=== PATIENT | female | born 1985 | race Caucasian/White ===

== ENCOUNTER 2020-07-17 20:59 | Emergency (ER) | payer OTHER ==
--- OUTSIDE RECORDS SUMMARY | 2020-07-17 21:01 | XMS REPORT | Summary of Care ---
:1985 Author Organization [facility] - Health Address [address] [place] [address] Care Team Providers Name Role Phone Pcp, Does Not Have A Primary Care Provider Encounter Details Date Type Department Care Team Description 06/17/2020 Orders Only [facility] Doctor Unassigned, No 301 [facility] [place] [address] [address] [place] [address] Allergies No Known Allergiesdocumented as of this encounter (statuses as of 06/17/2020) Medications Medication Sig Dispensed Refills Start Date End Date Status ALPRAZolam (XANAX) 1 mg Take 1 mg by 0 Active tablet mouth 3 (three) times daily. norgestimate-ethinyl Take 1 tablet by 1 Package 11 10/26/2019 Active estradiol (ORTHO mouth daily. TRI-CYCLEN LO, 28,) 0.18/0.215/0.25 mg-25 mcg tabletIndications: Encounter for other general counseling or advice on contraception ALPRAZolam 2 mg tablet TAKE ONE (1) 0 11/22/2019 Active TABLET(S) BY MOUTH THREE TIMES A DAY. fluticasone propionate Use 1 [place] in 16 g 2 12/21/2019 Active 50 mcg/actuation nasal each nostril sprayIndications: daily. Allergic rhinitis, unspecified seasonality, unspecified trigger cetirizine (ZYRTEC) 10 Take 1 tablet by 30 tablet 1 12/21/2019 Active mg tabletIndications: mouth daily. Allergic rhinitis, unspecified seasonality, unspecified trigger documented as of this encounter (statuses as of 06/17/2020) Active Problems Problem Noted Date Well woman exam 01/07/2016 Screen for STD (sexually transmitted disease) 01/07/20 16 Contraceptive management 01/07/2016 Fatigue 01/07/2016 Generalized anxiety disorder 10/28/2012 documented as of this encounter (statuses as of 06/17/2020) Immunizations Name Administration Dates Next Due HPV 03/23/2011, 11/21/2010, 09/23/2010 TDAP 11/14/2013 Td 09/06/1998 documented as of this encounter Social History Tobacco Use Types Packs/Day Years Used Date Former Smoker Cigarettes Quit: 01/07/20 14 Smokeless Tobacco: Never Used Alcohol Use Drinks/Week oz/Week Comments No 0 Standard drinks or equivalent 0.0 Sex Assigned at Date Recorded Not on file documented as of this encounter Last Filed Vital Signs Not on filedocumented in this encounter Plan of Treatment Health Maintenance Due Date Last Done Comments INFLUENZA VACCINE (#1) 2020 PAP SMEAR 06/23/2020 06/23/2017, 11/14/2013, 06/07/2009 VARICELLA VACCINES (1 of 2 - 10/26/2020 Pos tponed from 1986 2-dose childhood series) (Insura nce / Financial) Depression Screening 12/20/2020 12/21/2019 DTaP,Tdap,and Td Vaccines (3 11/15/2023 11/14/2013, - Td) 09/06/1998 PNEUMOCOCCAL 0-64 YEARS Aged Out No longe r eligible based COMBINED SERIES on patient's age to complete this to pic documented as of this encounter Procedures Procedure Name Priority Date/Time Associated Diagnosis Comme nts EXTERNAL PROVIDER Routine 06/17/2020 12:01 AM CDT RECORDS documented in this encounter Results Not on filedocumented in this encounter Insurance Payer Benefit Plan / Subscriber ID Effective Phone Address T ype Group Dates [employer] [id number] 2019-Pres [address] Medic aid HEALTH CHOICE - HEALTH CHOICE ent [id number] 1 MANAGED MEDICAID [place], [place] [phone] documented as of this encounter Advance Directives Name Relationship Healthcare Agent Communication Relationship Agustin Child Health Care Agent
--- OUTSIDE RECORDS SUMMARY | 2020-07-17 21:01 | XMS REPORT | Summary of Care ---
:1985 Author Organization [address] [address] Care Team Providers Name Role Phone Pcp, Does Not Have A Primary Care Provider Encounter Details Date Type Department Care Team Description 06/19/2020 Letter (Out) [facility] Neurology Neurology-[address] [place] [address] Allergies No Known Allergiesdocumented as of this encounter (statuses as of 06/19/2020) Medications Medication Sig Dispensed Refills Start Date [...] TIMES A DAY. fluticasone propionate Use 1 [place] in 16 g 2 12/21/2019 Active 50 mcg/actuation nasal each nostril sprayIndications: daily. Allergic rhinitis, unspecified seasonality, unspecified trigger cetirizine (ZYRTEC) 10 Take 1 tablet by 30 tablet 1 12/21/2019 Active mg tabletIndications: mouth daily. Allergic rhinitis, unspecified seasonality, unspecified trigger documented as of this encounter (statuses as of 06/19/2020) Active Problems Problem Noted Date Well woman exam 01/07/2016 Screen for STD (sexually transmitted disease) 01/07/20 16 Contraceptive management 01/07/2016 Fatigue 01/07/2016 Generalized anxiety disorder 10/28/2012 documented as of this encounter (statuses as of 06/19/2020) Immunizations Name Administration Dates Next Due HPV [...] to pic documented as of this encounter Results Not on filedocumented in this encounter Insurance Payer Benefit Plan / Subscriber ID Effective Phone Address T e Group Dates [facility] [id number] 2019-Pres [address] Medic aid HEALTH CHOICE - HEALTH CHOICE ent [id number] 1 MANAGED MEDICAID [place] [phone] documented as of this encounter Advance Directives Name Relationship Healthcare Agent Communication Relationship Vamsi Child Health Care Agent
--- OUTSIDE RECORDS SUMMARY | 2020-07-17 21:01 | XMS REPORT | Summary of Care ---
:1985 Author Organization [facility] Address [address] [place] [address] Care Team Providers Name Role Phone Pcp, Does Not Have A Primary Care Provider Reason for Visit Reason Comments New Evaluation referred by [facility] for bro juanjo facial bones (Routine) Status Reason Specialty Diagnoses / Procedures Referred By C ontact Referred To Contact Closed Neurology Diagnoses Dysesthesia Right Cranial Nerve v2 Dysesthesia Luis Manuel Ramírez, Procedures CONSULT/REFERRAL NEUROLOGY DDS [address] [place], [place] [address] Phone: Encounter Details Date Type Department Care Team Description 06/28/2020 Office Visit [facility] Juancarlos Wakefield Trigeminal n euralgia (Primary Dx); Neurology-Rudy Mcmahan MD TMJ dysfunction [address] [place] [id number] Allergies No Known Allergiesdocumented as of this encounter (statuses as of 07/03/2020) Medications Medication Sig Dispensed Refills Start Date End Date Status ALPRAZolam (XANAX) Take 1 mg by 0 Active 1 mg tablet mouth 3 (three) times daily. norgestimate-ethin Take 1 1 Package 11 10/26/2019 Active yl estradiol tablet by (ORTHO TRI-CYCLEN mouth daily. LO, 28,) 0.18/0.215/0.25 mg-25 mcg tabletIndications: Encounter for other general counseling or advice on contraception ALPRAZolam 2 mg TAKE ONE (1) 0 11/22/2019 Active tablet TABLET(S) BY MOUTH THREE TIMES A DAY. fluticasone Use 1 [place] 16 g 2 12/21/2019 Activ e propionate 50 in each mcg/actuation nostril nasal daily. sprayIndications: Allergic rhinitis, unspecified seasonality, unspecified trigger cetirizine Take 1 30 tablet 1 12/21/2019 Active (ZYRTEC) 10 mg tablet by tabletIndications: mouth daily. Allergic rhinitis, unspecified seasonality, unspecified trigger pregabalin Take 1 90 capsule 1 06/28/2020 Active (LYRICA) 50 mg capsule by capsuleIndications mouth 3 : Trigeminal (three) neuralgia times daily. pregabalin 100 mg 0 06/06/2020 D iscontinued capsule 0 (Dose adju stment) documented as of this encounter (statuses as of 07/03/2020) Active Problems Problem Noted Date Well woman exam 01/07/2016 Screen for STD (sexually transmitted disease) 01/07/20 16 Contraceptive management 01/07/2016 Fatigue 01/07/2016 Generalized anxiety disorder 10/28/2012 documented as of this encounter (statuses as of 07/03/2020) Immunizations Name Administration Dates Next Due HPV 03/23/2011, 11/21/2010, 09/23/2010 TDAP 11/14/2013 Td 09/06/1998 documented as of this encounter Social History Tobacco Use Types Packs/Day Years Used Date Former Smoker Cigarettes Quit: 01/07/20 14 Smokeless Tobacco: Never Used Alcohol Use Drinks/Week oz/Week Comments No 0 Standard drinks or equivalent 0.0 Sex Assigned at Date Recorded Not on file COVID-19 Exposure Response Date Recorded In the last month, have you been in contact with No / Unsure 06/28/2020 8:40 AM CDT someone who was confirmed or suspected to have Coronavirus / COVID-19? documented as of this encounter Last Filed Vital Signs Vital Sign Reading Time Taken Comments Blood Pressure 95/66 06/28/2020 9:09 AM CDT Pulse 88 06/28/2020 9:09 AM CDT Temperature - - Respiratory Rate - - Oxygen Saturation 99% 06/28/2020 9:09 AM CDT Inhaled Oxygen Concentration - - Weight 52.2 kg (115 lb) 06/28/2020 9:09 AM CDT Height 167.6 cm (5' 6") 06/28/2020 9:09 AM CDT Body Mass Index 18.56 06/28/2020 9:09 AM CDT documented in this encounter Progress Notes Juancarlos Wakefield MD - 06/28/2020 8:40 AM CDT I have verified the medical student documentation and/or findings, including the history, physical exam, and medical decision making for the patient Faviola Agustin on 06/28/2020. Additionally,I have personally performed or re- performed the physical and neurological exam and medical decision making activities of this patient's evaluation and management service. Right now the main working diagnosis is a trigeminal neuralgia, trigeminal nerve dysfunction may also explain the corneal reflex abnormality. Juancarlos Wakefield MD Parts And Service Manager Neurology NEUROLOGY CLINIC NOTE DATE OF SERVICE: 06/28/2020 10:13 VISIT TYPE: new visit CHIEF COMPLAINTS: facial numbness/pain HISTORY OF PRESENT ILLNESS Faviola Agustin is a 35 year old female with a history of right-side facial reconstruction who presents for evaluation of facial pain and numbness. She had reconstructive surgery on the right side of her face in 2019 after a fishing weight flew onto her face while she was fishing. Since the surgery she has had constant numbness and pain which she rated a 5/10. She started taking Lyrica 100mg about a month ago and noticed some improvement, bringing the pain down to a baseline 2/10, however she is still bothered by the feeling of pressure, numbness, pain, and tingling. She is also worried about potential side effects of Lyrica which she has experienced, including feeling foggy, drowsiness, dizziness, and GI changes, although over the past 2-3 weeks she notes they have improved. She experiences occasional dry eye, imbalance, headaches and sees floaters. Patient mentioned having a seizure about 7yrs ago. Patient denies diplopia, tinnitus, hearing loss, or weakness. PAST MEDICAL HISTORY Past Medical History: Diagnosis Date Abnormal Pap smear 2009 colpo completed [address] Machuca in [place] Generalized anxiety disorder 10/28/2012 Screen for STD (sexually transmitted disease) 01/07/2016 Trauma 2019 fish weight broke right cheek bone PAST SURGICAL HISTORY Past Surgical History: Procedure Laterality Date COSMETIC SURGERY 2019 Facial reconstuctive surgery FAMILY HISTORY Family History Problem Relation Age of Onset Other - see comments Mother hypothyroidism, and MS, and fibromyalsia Arthritis NoFHx Asthma NoFHx defects NoFHx Breast Cancer NoFHx Colon Cancer NoFHx Ovarian Cancer NoFHx Uterine Cancer NoFHx Cancer NoFHx Depression NoFHx Diabetes NoFHx Genetic NoFHx Heart NoFHx High cholesterol NoFHx Hypertension NoFHx Mental retardation NoFHx Neurological NoFHx Osteoporosis NoFHx Psychiatry NoFHx SOCIAL HISTORY Social History Socioeconomic History Marital status: Spouse name: Not on file Number of children: 1 daughter Years of education: Not on file Highest education level: Not on file 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 Social Needs Financial resource strain: Not on file Food insecurity Worry: Not on file Inability: Not on file Transportation needs Medical: Not on file Non-medical: Not on file Tobacco Use Smoking status: Former Smoker Types: Cigarettes Quit date: 01/06/2014 Years since quittin.4 Smokeless tobacco: Never Used Substance and Sexual Activity Alcohol use: yes Alcohol/week: 5-6 standard drinks Drug use: Occasional THC Sexual activity: Yes Partners: Male control/protection: Pill Comment: last sexual intercourse 10/25/2019 Lifestyle Physical activity Days per week: Not on file Minutes per session: Not on file Stress: Not on file Relationships Social connections Talks on phone: Not on file Gets together: Not on file Attends jain service: Not on file Active member of club or organization: Not on file Attends meetings of clubs or organizations: Not on file Relationship status: Not on file Intimate partner violence Fear of current or ex partner: Not on file Emotionally abused: Not on file Physically abused: Not on file Forced sexual activity: Not on file Other Topics Concern Service Not Asked Blood Transfusions No Caffeine Concern Not Asked Occupational Exposure Not Asked Hobby Hazards Not Asked Sleep Concern Not Asked Stress Concern Not Asked Weight Concern Not Asked Special Diet Not Asked Back Care Not Asked Exercise Not Asked Bike Helmet Not Asked Seat Belt Not Asked Self-Exams Not Asked Social History Narrative Denies domestic violence or abuse. Reviewed patient's family, surgical and social hx. HOME MEDICATIONS Current Outpatient Medications Medication Sig Dispense Refill pregabalin 100 mg capsule ALPRAZolam 2 mg tablet TAKE ONE (1) TABLET(S) BY MOUTH THREE TIMES A DAY. cetirizine (ZYRTEC) 10 mg tablet Take 1 tablet by mouth daily. 30 tablet 1 fluticasone propionate 50 mcg/actuation nasal spray Use 1 [place] in each nostril daily. 16 g 2 norgestimate-ethinyl estradiol (ORTHO TRI-CYCLEN LO, 28,) 0.18/0.215/0.25 mg-25 mcg tablet Take 1 tablet by mouth daily. 1 Package 11 ALPRAZolam (XANAX) 1 mg tablet Take 1 mg by mouth 3 (three) times daily. No current facility-administered medications for this visit. ALLERGY No Known Allergies REVIEW OF SYSTEMS General: (-) fever, (-) chills, (-) weight change, (+) fatigue, (-) change in appetite Skin: (-) lesion HEENT: see HPI Neck: (-) pain Heme: did not ask Resp: (-) cough, (-) shortness of breath, (-) dyspnea on exertion Cardio: (-) chest pain, (+) palpitations, (-) syncope GI: (+) nausea, (+) vomiting, (-) diarrhea, (-) constipation : did not ask Endo: (-) thyroid disease Neuro: See HPI Back: (-) pain MICHAEL: (-) muscle pain, (-) joint pain Psych: (+) anxiety, (+) panic attack PHYSICAL EXAM Vitals: 06/28/20 0909 BP: 95/66 BP Location: Left arm Patient Position: Sitting BP CUFF SIZE: Adult Medium Pulse: 88 SpO2: 99% Weight: 115 lb (52.2 kg) Height: 5' 6" (1.676 m) General: Alert and oriented x 4 (time, person, place and situation); no apparent distress. Mental Status: Consciousness, attention, concentration: normal, Stays focused and on task while being questioned. Speech/ Language: intact to comprehension, fluency, repetition and naming. Fund of knowledge: is congruent with level of education. Remote and recent memory: normal, can recall recent and distant memories Cranial Nerves: I. Not tested. II. PERRL. FOV full to confrontation. III. IV., . Extraocular movements intact without nystagmus. V. Normal sensation in V1 distributions. Numbness and sensitivity in right V2-V3 distribution; normal in left V2-V3. Decreased corneal reflex sensation in R eye afferent branch. VII. No facial droop noted. VIII. Hearing intact. IX., X. Palatal elevation and gag response present symmetrically. XI. Normal strength of sternocleidomastoid and trapezius muscles bilaterally. XII. Tongue in midline. Motor: Tone: normal Bulk: normal STRENGTH Right Left Deltoid 5 5 Biceps 5 5 Triceps 5 5 Wrist extensors 5 5 Interossei 5 5 Hip flexors 5 5 Knee flexors (hamstring) 5 5 Knee extensors (quadriceps) 5 5 Ankle dorsiflexors 5 5 Ankle plantar flexors 5 5 DTR's: Right Left Biceps 2+ 2+ Triceps 2+ 2+ Brachioradialis 2+ 2+ Patella 2+ 2+ Achilles 2+ 2+ Pathologic reflexes and signs: Babinski: absent Cerebellar: Nystagmus: neg, FTN: nl, HTS:nl, Tremors: neg, Dysdiadochokinesia: neg Sensory: LT: intact, mild disturbance in left arm and hand; temperature: intact, PP: intact, proprioception: intact, Vibration: intact Gait: normal HEENT: oropharynx clear; moist mucous membranes Lungs: clear to auscultation bilaterally Cardio: S1, S2 normal Extremities: no cyanosis, clubbing or edema Neck: supple, no carotid bruit, no JVD Abdomen: soft; non-tender; non-distended; normoactive bowel sounds heard ASSESSMENT AND PLAN Faviola Agustin is a 35 year old female with a history of right-side facial reconstruction who presents for evaluation of facial pain and numbness. Since her surgeries she has been experiencingconstant pain and numbness along the right side of her face which has improved a little with Lyrica.Physical exam was notable for decreased corneal reflex on the right, sensitivity to touch and pressure particularly in the V2 distribution and along the jawline, possibly involving the V3 distribution as well, and TMJ sensitivity. The abnormal sensation continues to bother her and she is open to increasing medication. Differential/Diagnosis Trigeminal Neuropathy She continues to experiences numbness and pain in the V2 and possibly V3 distribution. This is consistent with the area of surgical repair from her previous incident. She may benefit from an increased dose of Lyrica to 50mg TID to help with the neuropathy. Discussed the option of imaging and gamma knife therapy should Lyrica fail to provide therapeutic relief. TMJ dysfunction Her exam was notable for TMJ sensitivity and pain when pressure was applied along the jawline and near the joint. She could have had some damage in that area from the trauma or reconstructive surgery. She does not present with clicking which may rule out TMJ disorder, however other symptoms are present. Should her pain continue, imaging may be requested to investigate possible bone abnormalities. Plan -Change Lyrica dose to 50mg TID -follow-up PRN RTC PRN Sully Salomon MS3 Case was discussed and seen with Dr. Wakefield, Neurology Faculty. Eliceo Jacobo LVN - 06/28/2020 8:40 AM Jaret Margot Agustin is a 35 year old female comes to clinic independent in ambulation for followup from hospital stay due to facial fracture, pain in orbital area and discuss medication that hospit al prescribed. Pt comes alone . Pt in NAD w/ pain reported . Pt preferred language is Singaporean. Pt. denies fall in last 12 months. Allergies and medications reviewed and updated. ELICEO NEWMAN LVN 06/28/2020 9:26 AM documented in this encounter Plan of Treatment Health [...] Results Not on filedocumented in this encounter Visit Diagnoses Diagnosis Trigeminal neuralgia - Primary TMJ dysfunction Temporomandibular joint disorders, unspe cified documented in this encounter Insurance Payer Benefit Plan / Subscriber ID Effective Phone Address T ype Group Dates [employer] [id number] 2019- [address] Medic aid HEALTH CHOICE - HEALTH CHOICE ent [id number] 1 MANAGED MEDICAID [place]ICAID [phone] documented as of this encounter Advance Directives Name Relationship Healthcare Agent Communication Relationship Vamsi Child Health Care Agent
--- OUTSIDE RECORDS SUMMARY | 2020-07-17 21:01 | XMS REPORT | Continuity of Care Document ---
:1985 Author Organization [facility] t Address [address] [place] [address] Care Team Providers Name Role Phone Yovana Cadet Attending Clinician Doctor Unassigned, Name Attending Clinician Unavailable Twyla MORRIS, Gene Attending Clinician Problems This patient has no known problems. Allergies, Adverse Reactions, Alerts This patient has no known allergies or adverse reactions. Medications This patient has no known medications. Procedures This patient has no known procedures. Encounters Start End Encounter Admission Attending Care Care Encounter Source Date/Time Date/Time Type Type Clinicians Facility Department ID 2020-05-21 Outpatient [id number] 11:27:39 2019-11-10 Outpatient [facility] [facility] 14:36:23 2019-05-20 Inpatient E [facility] 08:17:00 2020-07-15 2020-07-15 Telephone GEORGINA [place] [id number] 00:00:00 00:00:00 Marie Yen QUALITY ASSURANCE NURSE [id number] [facility] [id number] MATERNAL [id number] & CHILD 107 [facility] 2020-07-05 2020-07-05 Orders Doctor BAUER [id number] 00:00:00 00:00:00 Only Unassigned, PATRICIA [id number] [place] [facility] [id number] 2020-07-02 2020-07-02 Telephone CHERELLE WakefieldMB [id number] 00:00:00 00:00:00 Juancarlos Grant [id number] [place] [id number] [facility] [id number] [address] 2020-06-28 2020-06-28 Office Twyla [facility] [id number] 08:40:57 10:43:57 Visit Juancarlos Grant [id number] [place] [id number] [facility] [id number] [address] 2020-04-23 2020-04-23 [facility]patient [id number] 09:14:00 09:14:00 2019-06-08 2019-06-08 Outpatient [id number] 08:53:00 08:53:00 2019-05-29 2019-05-29 Inpatient U [id number] 05:35:00 05:35:00 Results This patient has no known results.
--- OUTSIDE RECORDS SUMMARY | 2020-07-17 21:02 | XMS REPORT | Summary of Care ---
:1985 Author Organization [facility] - Health Address [address] [place] [address] Care Team Providers Name Role Phone Pcp, Does Not Have A Primary Care Provider Encounter Details Date Type Department Care Team Description 07/05/2020 Orders Only [facility] Doctor Unassigned, No 301 [facility] Name [place] [id number] [address] [place] [id number] Allergies No Known Allergiesdocumented as of this encounter (statuses as of 07/09/2020) Medications Medication Sig Dispensed Refills Start Date [...] TIMES A DAY. fluticasone propionate Use 1 [place] in 16 g 2 12/21/2019 Active 50 mcg/actuation nasal each nostril sprayIndications: daily. Allergic rhinitis, unspecified seasonality, unspecified trigger cetirizine (ZYRTEC) 10 Take 1 tablet by 30 tablet 1 12/21/2019 Active mg tabletIndications: mouth daily. Allergic rhinitis, unspecified seasonality, unspecified trigger pregabalin (LYRICA) 50 Take 1 capsule 90 capsule 1 07/05/2020 Active mg capsuleIndications: by mouth 3 Trigeminal neuralgia (three) times daily. documented as of this encounter (statuses as of 07/09/2020) Active Problems Problem Noted Date Well woman exam 01/07/2016 Screen for STD (sexually transmitted disease) 01/07/20 16 Contraceptive management 01/07/2016 Fatigue 01/07/2016 Generalized anxiety disorder 10/28/2012 documented as of this encounter (statuses as of 07/09/2020) Immunizations Name Administration Dates Next Due HPV [...] on patient's age to complete this to [facility] documented as of this encounter Procedures Procedure Name Priority Date/Time Associated Diagnosis Comme nts CONTROLLED SUBSTANCE Routine 07/05/2020 12:01 AM PRESCRIPTION CDT documented in this encounter Results Not on filedocumented in this encounter Insurance Payer Benefit Plan / Subscriber ID Effective Phone Address T e Group [facility] [id number] 2019-Pres [address] Medic aid HEALTH CHOICE - HEALTH CHOICE ent [id number] 1 MANAGED MEDICAID [place], [place]ID [phone] documented as of this encounter Advance Directives Name Relationship Healthcare Agent Communication Relationship Vamsi Child Health Care Agent
--- OUTSIDE RECORDS SUMMARY | 2020-07-17 21:02 | XMS REPORT | Summary of Care ---
:1985 Author Organization [facility] Address [address] [place] [address] Care Team Providers Name Role Phone Pcp, Does Not Have A Primary Care Provider Reason for Visit Reason Comments Assessment stomach pains Encounter Details Date Type Department Care Team Description 07/15/2020 Telephone [facility]- Marie Toledo Ass essment (stomach [place] C, WHCNP pains ) [address] [facility] [address] [place], [place] [phone] Allergies No Known Allergiesdocumented as of this encounter (statuses as of 07/17/2020) Medications Medication Sig Dispensed Refills Start Date [...] TIMES A DAY. fluticasone propionate Use 1 Coolin in 16 g 2 12/21/2019 Active 50 [...] as of this encounter (statuses as of 07/17/2020) Active Problems Problem Noted Date Well woman exam 01/07/2016 Screen for STD (sexually transmitted disease) 01/07/20 16 Contraceptive management 01/07/2016 Fatigue 01/07/2016 Generalized anxiety disorder 10/28/2012 documented as of this encounter (statuses as of 07/17/2020) Immunizations Name Administration Dates Next Due HPV [...] Signs Not on filedocumented in this encounter Miscellaneous Notes Telephone Encounter - Farhat Thornton RN - 07/17/2020 9:04 AM CSTCalled patient, no answer. 3rd attempt. Left vm. FARHAT THORNTON RN 07/17/2020 9:04 AM MONITOR Telephone Encounter - Liliane Wyatt LVN - 07/15/2020 4:52 PM Sivakumar Margot Agustin is a 35 year old female Attempted to call patient, no answer, left vm. elephone Encounter - Jayda Nielsen - 07/15/2020 1:44 PM Sivakumar Margot Agustin is a 35 year old female is calling to see if she can be seen in the clinic. Patient says that she has been having stomach pains with burning sensation. Please return call. Fernanda. documented in this encounter Plan of Treatment [...] on patient's age to complete this to [facility] documented as of this encounter Results Not on filedocumented in this encounter Insurance Payer Benefit Plan / Subscriber ID Effective Phone Address T e Group [facility] COMMUNITY [id number] 2019-Pres [address] Medic aid HEALTH CHOICE - HEALTH CHOICE ent [id number] 1 MANAGED MEDICAID [place], [place]ID [id number] documented as of this encounter Advance Directives Name Relationship Healthcare Agent Communication Relationship Vamsi Child Health Care Agent
--- OUTSIDE RECORDS SUMMARY | 2020-07-17 21:02 | XMS REPORT | Summary of Care ---
:1985 Author Organization [facility] Address [address] [place] [address] Care Team Providers Name Role Phone Pcp, Does Not Have A Primary Care Provider Reason for Visit Reason Comments New Evaluation referred by [facility] for bro juanjo facial bones (Routine) Status Reason Specialty Diagnoses / Procedures Referred By C ontact Referred To Contact Closed Neurology Diagnoses Dysesthesia Right Cranial Nerve v2 Dysesthesia Luis Manuel Ramírez, Procedures CONSULT/REFERRAL NEUROLOGY DDS [address] [place], [place] [address] Phone: Encounter Details Date Type Department Care Team Description 06/28/2020 Office Visit [facility] Juancarlos Wakefield Trigeminal n euralgia (Primary Dx); Neurology-Rudy Mcmahan MD TMJ dysfunction [address] [place] [phone] Allergies No Known Allergiesdocumented as of [...] THREE TIMES A DAY. fluticasone Use 1 [place] 16 g 2 12/21/2019 Activ e propionate [...] the corneal reflex abnormality. Juancarlos Wakefield MD [employer] Manager Neurology NEUROLOGY CLINIC NOTE DATE OF [...] completed [address] 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 16 g 2 [...] pain reported . Pt preferred language is Slovenian. Pt. denies fall in last 12 months. [...] Address T ype Group Dates COMMUNITY COMMUNITY [id number] 2019- [address] Medic aid HEALTH CHOICE - HEALTH CHOICE ent [id number] 1 MANAGED MEDICAID [place], [place]ID [phone] documented as of this encounter Advance Directives Name Relationship Healthcare Agent Communication Relationship Vamsi Child Health Care Agent
--- OUTSIDE RECORDS SUMMARY | 2020-07-17 21:02 | XMS REPORT | Summary of Care ---
:1985 Author Organization [facility] Address [address] [place] [address] Care Team Providers Name Role Phone Pcp, Does Not Have A Primary Care Provider Reason for Visit Reason Comments Rx Concern/Question needing Rx resent/pregabalin (LYRICA) 50 mg capsule Encounter Details Date Type Department Care Team Description 07/02/2020 Telephone [facility] Juancarlos Wakefield, Rx Con cern/Question Neurology-Rudy MORRIS (needing Rx [address] resent/p[address], [address] [place], [place] (LYRICA) 50 [place] [phone] capsule) [phone] Allergies No Known Allergiesdocumented as of this encounter (statuses as of 07/05/2020) Medications Medication Sig Dispensed Refills Start Date [...] THREE TIMES A DAY. fluticasone Use 1 [place] 16 g 2 12/21/2019 Activ e propionate 50 in each mcg/actuation nostril nasal daily. sprayIndications: Allergic rhinitis, unspecified seasonality, unspecified trigger cetirizine Take 1 30 tablet 1 12/21/2019 Active (ZYRTEC) 10 mg tablet by tabletIndications: mouth daily. Allergic rhinitis, unspecified seasonality, unspecified trigger pregabalin Take 1 90 capsule 1 07/05/2020 Active (LYRICA) 50 mg capsule by capsuleIndications mouth 3 : Trigeminal (three) neuralgia times daily. pregabalin Take 1 90 capsule 1 06/28/2020 Discont inued (LYRICA) 50 mg capsule by 0 (Reo rder) capsuleIndications mouth 3 : Trigeminal (three) neuralgia times daily. pregabalin Take 1 90 capsule 1 07/05/2020 Discont inued (LYRICA) 50 mg capsule by 0 capsuleIndications mouth 3 : Trigeminal (three) neuralgia times daily. documented as of this encounter (statuses as of 07/05/2020) Active Problems Problem Noted Date Well woman exam 01/07/2016 Screen for STD (sexually transmitted disease) 01/07/20 16 Contraceptive management 01/07/2016 Fatigue 01/07/2016 Generalized anxiety disorder 10/28/2012 documented as of this encounter (statuses as of 07/05/2020) Immunizations Name Administration Dates Next Due HPV [...] this encounter Miscellaneous Notes Telephone Encounter - Newman, Eliceo GrubbsJASKARAN - 07/05/2020 8:39 AM CDT Requested Prescriptions Signed Prescriptions Disp Refills pregabalin (LYRICA) 50 mg capsule 90 capsule 1 Sig: Take 1 capsule by mouth 3 (three) times daily. Authorizing Provider: JULIA KAPADIA Ordering User: ELICEO NEWMAN. RX was printed and faxed to pharmacy for refill and faxed to pharmacy. ELICEO NEWMAN LVN 07/05/2020 8:46 AM elephone Encounter - Eliceo Newman LVN - 07/04/2020 11:30 AM CDTCalled patient and informed patient that RX needs to be signed and that MD will be in office in AM to print and sign. Patient is ok with this and verbalized understanding. ELICEO NEWMAN LVN 07/04/2020 11:31 AM elephone Encounter - Julieta Babin - 07/04/2020 10:40 AM CDT Faviola Agustin is a 35 year old female calling because pharmacy never received a prescription for the following medication: Patient has one capsule left. Please advise. Thank you! Disp Refills Start End AVIVA pregabalin (LYRICA) 50 mg capsule 90 capsule 1 06/28/2020 -- Sig: Take 1 capsule by mouth 3 (three) times daily. Class: Normal Route: Oral Order: [id number] Date/Time Signed: 06/28/2020 13:42 Renewals Renewal requests to authorizing provider (Juancarlos Wakefield MD) prohibited Associated Diagnoses Trigeminal neuralgia - Primary Pharmacy [facility] [place], [place] - [address] [facility] & [address] elephone Encounter - Stephen Crockett - 07/03/2020 3:05 PM CDJayshree Margot Agustin is a 35 year old female Patient is needing pregabalin (LYRICA) 50 mg capsule resent to pharmacy. Pharmacy states that prescription was never received. Please contact patient at [phone] (home) [facility] [place], [place] - [address] [place], [place] [address] [place] [address] [place] [id number] Qiynbqnvchgeuo signed by Stephen Crockett at 07/03/2020 3:06 PM CDTTelephone Encounter - Minna Sung - 07/02/2020 4:03 PM Jaret Margot Agustin is a 35 year old female Patient is needing pregabalin (LYRICA) 50 mg capsule resent to pharmacy. Pharmacy states that prescription was never received. Please contact patient at [phone] (home) [facility] [place], [place] - [address] [place], [place] [address] [facility] [place] [address] [place] [id number] documented in this encounter Plan of Treatment [...] on patient's age to complete this to [facility] documented as of this encounter Results Not on filedocumented in this encounter Visit Diagnoses Diagnosis Trigeminal neuralgia documented in this encounter Insurance Payer Benefit Plan / Subscriber ID Effective Phone Address T [facility] [id number] 2019-Pres [address] Medic aid HEALTH CHOICE - HEALTH CHOICE ent [id number] 1 MANAGED MEDICAID [place], [place] [id number] documented as of this encounter Advance Directives Name Relationship Healthcare Agent Communication Relationship Vamsi Child Health Care Agent
--- NOTE | 2020-07-17 22:00 | ER ---
Nurse's Notes [facility] Name: Faviola Agustin Age: 35 yrs Sex: Female : 1985 Arrival Date: 07/17/2020 Time: 21:02 Bed 30 Private MD: Diagnosis: Struck by other nonvenomous marine animals-jellyfish Presentation: 07/17 21:14 Chief complaint: Patient states: stung by box jelly fish approximately 2 hours ago on dm5 left wrist. Pain to left wrist, some swelling and redness noted. Pt states that pain is radiating to elbow at this time. Pain rated at 8/10 at this time. Pt states that they took Benadryl cream and 1 zyrtec 2 hours ago. Coronavirus screen: Client denies travel out of the [place] in the last 14 days. At this time, the client does not indicate any symptoms associated with coronavirus-19. Ebola Screen: Patient negative for fever greater than or equal to 101.5 degrees Fahrenheit, and additional compatible Ebola Virus Disease symptoms Patient denies exposure to infectious person. Patient denies travel to an Ebola-affected area in the 21 days before illness onset. No symptoms or risks identified at this time. Initial Sepsis Screen: Does the patient meet any 2 criteria? No. Patient's initial sepsis screen is negative. Does the patient have a suspected source of infection? No. Patient's initial sepsis screen is negative. Risk Assessment: Do you want to hurt yourself or someone else? Patient reports no desire to harm self or others. Onset of symptoms was July 17, 2020. 21:14 Method Of Arrival: Ambulatory dm5 21:14 Acuity: YOBANI 4 dm5 Historical: - Allergies: 22:13 No Known Allergies; rv - Home Meds: 22:13 None [Active]; rv - PMHx: 22:13 None; rv - PSHx: 22:13 Unable to obtain; rv - Immunization history:: Adult Immunizations up to date. - Social history:: Smoking status: unknown. Screenin:12 Abuse screen: Denies threats or abuse. Denies injuries from another. Nutritional rv screening: No deficits noted. Tuberculosis screening: No symptoms or risk factors identified. Fall Risk None identified. Assessment: 22:12 General: Appears uncomfortable, Behavior is calm, cooperative. Pain: Complains of pain rv in left forearm. Neuro: Level of Consciousness is awake, alert, obeys commands, Oriented to person, place, time, situation. Cardiovascular: Patient's skin is warm and dry. Respiratory: Airway is patent Breath sounds are clear bilaterally. Derm: Rash noted that is red, on left forearm. Vital Signs: 21:14 BP 120 / 81; Pulse 79; Resp 18; Temp 97.9; Pulse Ox 100% on R/A; Weight 47.63 kg; dm5 Height 5 ft. 7 in. (170.18 cm); Pain 8/10; 21:14 Body Mass Index 16.45 (47.63 kg, 170.18 cm) 5 ED Course: 21:02 Patient arrived in ED. cf2 21:17 Triage completed. 5 21:21 Barbara Granados [facility]NP-C [facility]. kb 21:21 Rohit Aguila MD is Attending Physician. kb 22:00 Kit Salgado, ADRIEN is Primary Nurse. rv 22:13 Patient has correct armband on for positive identification. Pulse ox on. NIBP on. rv 22:13 Arm band placed on right wrist. rv 22:13 No provider procedures requiring assistance completed. Patient did not have IV access rv during this emergency room visit. Administered Medications: 22:11 Drug: Merrill (7.5 mg-325 mg) 1 tabs {Note: RASS 0.} Route: PO; rv 22:12 Follow up: Response: Medication administered at discharge. rv 22:11 Drug: Zofran (Ondansetron) 4 mg Route: PO; rv 22:12 Follow up: Response: Medication administered at discharge. rv 22:11 Drug: Doxycycline 100 mg Route: PO; rv 22:11 Follow up: Response: Medication administered at discharge. rv Outcome: 21:59 Discharge ordered by MD. kb 22:13 Discharged to home ambulatory, with family. rv 22:13 Condition: good 22:13 Discharge instructions given to patient, Instructed on discharge instructions, follow up and referral plans. medication usage, Demonstrated understanding of instructions, follow-up care, medications, Prescriptions given X 3. 22:13 Patient left the ED. rv Signatures: Barbara Granados FNP-C FNP-Ckb Markwardt, Deana, RN RN dm5 Kit Salgado RN RN rv Suhail, Martínez cf2
--- NOTE | 2020-07-17 22:00 | EDPHYS ---
Physician Documentation [facility] Name: Faviola Agustin Age: 35 yrs Sex: Female : 1985 Arrival Date: 07/17/2020 Time: 21:02 Bed 30 Private MD: ED Physician Rohit Aguila HPI: 07/17 22:09 This 35 yrs old Female presents to ER via Ambulatory with complaints of sTUNG kb BY A BOX JELLYFISH. 22:09 The patient was bitten on the left forearm, stung by jellyfish while diving 50 miles kb [place]. Onset: The symptoms/episode began/occurred today. Animal information: jellyfish. Secondary to the bite the patient reports erythema, pain, swelling. Associated signs and symptoms: Pertinent positives: erythema at site, pain at site, swelling at site. Severity of symptoms: At their worst the symptoms were moderate, in the emergency department the symptoms are unchanged. The patient has not experienced similar symptoms in the past. The patient has not recently seen a physician. Historical: - Allergies: 22:13 No Known Allergies; rv - Home Meds: 22:13 None [Active]; rv - PMHx: 22:13 None; rv - PSHx: 22:13 Unable to obtain; rv - Immunization history:: Adult Immunizations up to date. - Social history:: Smoking status: unknown. ROS: 22:07 Constitutional: Negative for fever, chills, and weight loss, Cardiovascular: Negative kb for chest pain, palpitations, and edema, Respiratory: Negative for shortness of breath, cough, wheezing, and pleuritic chest pain, Abdomen/GI: Negative for abdominal pain, nausea, vomiting, diarrhea, and constipation, Back: Negative for injury and pain, MS/Extremity: Negative for injury and deformity, Neuro: Negative for headache, weakness, numbness, tingling, and seizure. 22:07 Skin: Positive for erythema, of the left forearm. Exam: 22:07 Constitutional: This is a well developed, well nourished patient who is awake, alert, kb and in no acute distress. Head/Face: Normocephalic, atraumatic. Chest/axilla: Normal chest wall appearance and motion. Nontender with no deformity. No lesions are appreciated. Cardiovascular: Regular rate and rhythm with a normal S1 and S2. No gallops, murmurs, or rubs. Normal PMI, no JVD. No pulse deficits. Respiratory: Lungs have equal breath sounds bilaterally, clear to auscultation and percussion. No rales, rhonchi or wheezes noted. No increased work of breathing, no retractions or nasal flaring. Abdomen/GI: Soft, non-tender, with normal bowel sounds. No distension or tympany. No guarding or rebound. No evidence of tenderness throughout. MS/ Extremity: Pulses equal, no cyanosis. Neurovascular intact. Full, normal range of motion. Neuro: Awake and alert, GCS 15, oriented to person, place, time, and situation. Cranial nerves II-XII grossly intact. Motor strength 5/5 in all extremities. Sensory grossly intact. Cerebellar exam normal. Normal gait. 22:07 Skin: injury, jellyfish sting. Vital Signs: 21:14 BP 120 / 81; Pulse 79; Resp 18; Temp 97.9; Pulse Ox 100% on R/A; Weight 47.63 kg; dm5 Height 5 ft. 7 in. (170.18 cm); Pain 8/10; 21:14 Body Mass Index 16.45 (47.63 kg, 170.18 cm) dm5 MDM: 21:42 Patient medically screened. kb 22:06 Data reviewed: vital signs, nurses notes. Data interpreted: Pulse oximetry: on room air kb is 100 %. Interpretation: normal. Counseling: I had a detailed discussion with the patient and/or guardian regarding: the historical points, exam findings, and any diagnostic results supporting the discharge/admit diagnosis, the need for outpatient follow up, a family practitioner, to return to the emergency department if symptoms worsen or persist or if there are any questions or concerns that arise at home. Administered Medications: 22:11 Drug: Jackson (7.5 mg-325 mg) 1 tabs {Note: RASS 0.} Route: PO; rv 22:12 Follow up: Response: Medication administered at discharge. rv 22:11 Drug: Zofran (Ondansetron) 4 mg Route: PO; rv 22:12 Follow up: Response: Medication administered at discharge. rv 22:11 Drug: Doxycycline 100 mg Route: PO; rv 22:11 Follow up: Response: Medication administered at discharge. rv Disposition: 22:28 Co-signature as Attending Physician, Rohit Aguila MD. rn Disposition: 07/17/20 21:59 Discharged to Home. Impression: Struck by other nonvenomous marine animals - jellyfish. - Condition is Stable. - Discharge Instructions: Marine Life Injury, Vvhi-[id number]-Qjaz. - Prescriptions for Tylenol- Codeine #3 300-30 mg Oral Tablet - take 2 tablets by ORAL route every 6 hours As needed; 16 tablet. Zofran 4 mg Oral Tablet - take 1 tablet by ORAL route every 6 hours As needed; 20 tablet. Doxycycline Hyclate 100 mg Oral Tablet - take 1 tablet by ORAL route every 12 hours; 20 tablet. - Medication Reconciliation Form, Thank You Letter, Antibiotic Education, Prescription Opioid Use form. - Follow up: Emergency Department; When: As needed; Reason: Worsening of condition. Follow up: Private Physician; When: 2 - 3 days; Reason: Recheck today's complaints, Continuance of care, Re-evaluation by your physician. Signatures: Barbara Granados, AUTOMOTIVE PRODUCTION WORKER-C AUTOMOTIVE PRODUCTION WORKER-Ckb Rohit Aguila MD MD rn Kit Salgado RN RN rv Corrections: (The following items were deleted from the chart) 22:00 21:59 07/17/2020 21:59 Discharged to Home. Impression: Struck by other nonvenomous marine animals. Condition is Stable. Forms are Medication Reconciliation Form, Thank You Letter, Antibiotic Education, Prescription Opioid Use. Follow up: Emergency Department; When: As needed; Reason: Worsening of condition. Follow up: Private Physician; When: 2 - 3 days; Reason: Recheck today's complaints, Continuance of care, Re-evaluation by your physician. kb 22:13 22:00 07/17/2020 21:59 Discharged to Home. Impression: Struck by other nonvenomous marine animals - jellyfish. Condition is Stable. Forms are Medication Reconciliation Form, Thank You Letter, Antibiotic Education, Prescription Opioid Use. Follow up: Emergency Department; When: As needed; Reason: Worsening of condition. Follow up: Private Physician; When: 2 - 3 days; Reason: Recheck today's complaints, Continuance of care, Re-evaluation by your physician. kb
[2020-07-17] MEDS ORDERED: DOXYCYCLINE 100 MG CAP PO ONE (22:17)
[2020-07-17] MEDS ORDERED: ONDANSETRON 4 MG (ODT) TAB ONE (22:17)
[2020-07-17] MEDS ORDERED: HYDROCODONE/APAP 7.5/325 MG TAB ONE (22:17)
[2020-07-17 22:45] VITALS: BP 120/81; TEMP 97.9; O2SAT 100
== END 2020-07-17 22:13 | disposition home or self-care (01) ==
LOC: ER 20:59
DX: R21 Rash and other nonspecific skin eruption (principal); W56.82XA Struck by other nonvenomous marine animals, initial encounter; Y93.15 Activity, underwater diving and snorkeling; Y92.9 Unspecified place or not applicable
CPT/HCPCS: 99283

== ENCOUNTER 2020-11-25 13:47 | Inpatient (IN) | payer OTHER ==
--- OUTSIDE RECORDS SUMMARY | 2020-11-25 13:50 | XMS REPORT | Continuity of Care Document ---
:1985 Author Organization [facility] t Address [address] [place] [address] Care Team Providers Name Role Phone Vicki Castrejon Attending Clinician Problems This patient has no known problems. Allergies, Adverse Reactions, Alerts This patient has no known allergies or adverse reactions. Medications This patient has no known medications. Procedures This patient has no known procedures. Encounters Start End Encounter Admission Attending Care Care Encounter Source Date/Time Date/Time Type Type Clinicians Facility Department ID 2020-05-21 Outpatient [facility] [id number] [facility] 11:27:39 2019-11-10 Outpatient [facility] [id number] [facility] 14:36:23 2019-05-20 Inpatient E [facility] [id number] [facility] H 08:17:00 2020-11-11 2020-11-11 Office GEORGINA Dunn [id number] 15:35:30 16:14:21 Visit Naveen Cohen [facility] [id number] [facility] [id number] MATERNAL [id number] & CHILD [address] [place] [address] 2020-04-23 2020-04-23 Outpatient [facility] [id number] [facility] 09:14:00 09:14:00 2019-06-08 2019-06-08 Outpatient [facility] [id number] [facility] 08:53:00 08:53:00 2019-05-29 2019-05-29 Inpatient U [facility] [id number] [facility] 05:35:00 05:35:00 Results This patient has no known results.
[2020-11-25] MEDS ORDERED: ONDANSETRON 4 MG/2 ML VIAL ONE ×2 (14:49→16:32)
[2020-11-25] MEDS ORDERED: MORPHINE 4 MG/ML SYR ONE ×2 (14:49→16:32)
[2020-11-25] MEDS ORDERED: NA CHLORIDE 0.9% 1,000 ML ONE ×4 (14:49→22:50)
[2020-11-25 14:59] LABS: Basophils % 0.3 % (0-1.3); Hematocrit 37.6 % (36.0-45.0); Lymphocytes % 7.2 % (15.3-44.8); MPV 9.1 fL (7.6-11.3); RBC Red Blood Cell Count 3.83 M/uL (3.86-4.86)
[2020-11-25 15:02] LABS: Urine Blood 2+ (NEG); Urine Glucose NEGATIVE (NEG); Urine Protein 2+ (NEG); Urine Specific Gravity 1.025 (1.005-1.030); Urine pH 5.5 (5.0-7.0)
[2020-11-25 15:05] LABS: Urine Bacteria 20-50 /HPF (<20); Urine Mucus 2+ /HPF (NONE SEEN)
[2020-11-25 15:14] LABS: ALT/SGPT 17 U/L (12-78); AST/SGOT 10 U/L (15-37); Albumin 3.4 g/dL (3.4-5.0); Alkaline Phosphatase 87 U/L (45-117); BUN Blood Urea Nitrogen 6 mg/dL (7-18); Bicarbonate 22 mmol/L (21-32); Bilirubin Direct 0.1 mg/dL (0-0.2); Bilirubin Total 0.6 mg/dL (0.2-1.0); Glucose Level 99 mg/dL (74-106); Lipase 53 U/L (73-393); Potassium 3.6 mmol/L (3.5-5.1); Protein, Total 7.9 g/dL (6.4-8.2); Sodium Level 137 mmol/L (136-145)
--- NOTE | 2020-11-25 15:19 | RAD REPORT ---
EXAM DESCRIPTION: CT - Abdomen Pelvis W Contrast - 11/25/2020 3:06 pm CLINICAL HISTORY: Abdominal pain/right flank pain COMPARISON: none. TECHNIQUE: Computed axial tomography of the abdomen pelvis was obtained. 100 cc Isovue-300 was admin istered intravenously. Oral contrast was not requested which limits evaluation of bowel. All CT scans are performed using dose optimization technique as appropriate and may include automated exposure control or mA/KV adjustment according to patient size. FINDINGS: The liver, spleen, pancreas, adrenal and left kidney appear unremarkable. There is delay of concentration of contrast within the right kidney. Mild dilatation of an extrarenal pelvis is present. Enhancement of the wall of the renal pelvis and right ureter is seen. Low-density areas extend to the periphery of the right kidney. A ureteral calculus is not visualized. Evaluation is somewhat limited secondary to the administration of IV contrast. There is no evidence of diverticulitis. Small amount of free fluid IMPRESSION: These findings probably indicate a pyelonephritis/ureteritis
[2020-11-25] MEDS ORDERED: CEFTRIAXONE/SWI 1gm 1 GM/10 ML SYR ONE (15:40)
[2020-11-25] MEDS ORDERED: CIPROFLOXACIN HCL 500 MG TAB ONE (17:53)
--- NOTE | 2020-11-25 18:17 | ER ---
Nurse's Notes [facility] Name: Faviola Agustin Age: 35 yrs Sex: Female : 1985 Arrival Date: 11/25/2020 Time: 13:51 Bed 18 Private MD: Diagnosis: Pyelonephritis;Nausea and vomiting Presentation: 11/25 14:08 Chief complaint: Patient states: R flank pain since Wednesday. Slight dysuria this ll1 morning. + N/V. Coronavirus screen: Client denies travel out of the [place] in the last 14 days. At this time, the client does not indicate any symptoms associated with coronavirus-19. Ebola Screen: Patient denies travel to an Ebola-affected area in the 21 days before illness onset. Initial Sepsis Screen: Does the patient meet any 2 criteria? HR > 90 bpm. No. Patient's initial sepsis screen is negative. Does the patient have a suspected source of infection? Yes: Dysuria/Frequency/Urgency/UTI. Risk Assessment: Do you want to hurt yourself or someone else? Patient reports no desire to harm self or others. Onset of symptoms was November 23, 2020. 14:08 Method Of Arrival: Ambulatory ll1 14:08 Acuity: YOBANI 3 ll1 Historical: - Allergies: 14:10 No Known Allergies; ll1 - PMHx: 14:10 Seizures; ll1 - PSHx: 14:10 facial reconstruction; ll1 - Immunization history:: Flu vaccine is not up to date. - Social history:: Smoking status: Patient denies any tobacco usage or history of. Screenin:29 Abuse screen: Denies threats or abuse. Denies injuries from another. Nutritional iw screening: No deficits noted. Tuberculosis screening: No symptoms or risk factors identified. Fall Risk IV access (20 points). Assessment: 15:29 Reassessment: Patient appears in no apparent distress at this time. Patient and/or iw family updated on plan of care and expected duration. Pain level reassessed. pt has been medicated with IV abx, IV fluids infusing to RAC. 16:50 Reassessment: Patient appears in no apparent distress at this time. Patient and/or iw family updated on plan of care and expected duration. Pain level reassessed. Patient is alert, oriented x 3, equal unlabored respirations, skin warm/dry/pink. 17:23 Reassessment: Patient appears in no apparent distress at this time. Patient and/or iw family updated on plan of care and expected duration. Pain level reassessed. Patient is alert, oriented x 3, equal unlabored respirations, skin warm/dry/pink. 20:20 General: Appears uncomfortable, Behavior is calm, cooperative. Pain: Complains of pain sf in right lower quadrant Pain radiates to anterior aspect of right lateral abdomen Pain currently is 7 out of 10 on a pain scale. Neuro: No deficits noted. Level of Consciousness is awake, alert, Oriented to person, place, time, situation. Cardiovascular: No deficits noted. Capillary refill < 3 seconds. Respiratory: No deficits noted. Airway is patent Respiratory effort is even, unlabored, Respiratory pattern is regular, symmetrical. GI: Abdomen is non-distended, Bowel sounds present X 4 quads. Abd is soft Abd is non tender. : Reports pain in right lower quadrant(s). Derm: Skin is diaphoretic. Vital Signs: 14:08 BP 133 / 74; Pulse 124; Resp 18; Temp 97.8; Pulse Ox 99% ; Weight 49.9 kg; Height 5 ft. ll1 6 in. (167.64 cm); Pain 9/10; 15:28 BP 113 / 70; Pulse 112; Resp 16; Pulse Ox 99% on R/A; iw 16:49 BP 103 / 61; Pulse 106; Resp 16; Pulse Ox 98% on R/A; iw 17:23 BP 102 / 79; Pulse 111; Resp 16 S; Pulse Ox 99% on R/A; iw 20:01 BP 116 / 66; Pulse 115; Resp 18; Pulse Ox 98% ; sf 20:23 Temp 100.8; sf 14:08 Body Mass Index 17.75 (49.90 kg, 167.64 cm) ll1 ED Course: 13:51 Patient arrived in ED. mr 14:09 Triage completed. ll1 14:10 Arm band placed on Patient placed in an exam room, on a stretcher. ll1 14:12 Anthony Garcia NP is PHCP. pm1 14:12 Rohit Aguila MD is Attending Physician. pm1 14:29 Sinai Vann RN is Primary Nurse. iw 14:49 Initial lab(s) drawn, by me, sent to lab. Inserted saline lock: 20 gauge in right iw antecubital area, using aseptic technique. 15:06 CT Abd/Pelvis - IV Contrast Only In Process Unspecified. EDMS 18:16 José Adams PA is Hospitalizing Provider. pm1 19:07 Hospitalizing Provider role handed off by José Adams PA pm1 19:07 Darien Alvarado is Hospitalizing Provider. pm1 20:13 Primary Nurse role handed off by Sinai Vann RN sf 20:13 Praveen Chaney, ADRIEN is Primary Nurse. sf 20:20 Patient has correct armband on for positive identification. Bed in low position. Call sf light in reach. Side rails up X 1. Pulse ox on. NIBP on. Door closed. Noise minimized. Visitors limited. Lights dimmed. Verbal reassurance given. 20:20 No provider procedures requiring assistance completed. sf 21:00 Patient admitted, IV remains in place. sf 21:40 Attempt blood culture collection with 23 gauge butterfly to right forearm without sf success, patient tolerated well. 21:50 COVID swab sent to lab. sf 22:00 First set of blood cultures drawn by me. sf 03 02:45 Blood Culture Adult (2) Sent. sf 07:34 Primary Nurse role handed off by Praveen Chaney, ADRIEN bd 16:56 Brittny Myles, ADRIEN is Primary Nurse. bw Administered Medications: 11/25 14:50 Drug: NS 0.9% 1000 ml Route: IV; Rate: 1000 ml; Site: right antecubital; iw 19:00 Follow up: IV Status: Completed infusion; IV Intake: 1000ml sf 14:51 Drug: morphine 4 mg Route: IVP; Site: right antecubital; iw 20:21 Follow up: Response: No adverse reaction sf 14:51 Drug: Zofran (Ondansetron) 4 mg Route: IVP; Site: right antecubital; iw 20:21 Follow up: Response: No adverse reaction sf 15:28 Drug: Rocephin (cefTRIAXone) 1 grams Route: IV; Rate: calculated rate; Site: right iw antecubital; 20:20 Follow up: IV Status: Completed infusion; IV Intake: 50ml sf 16:48 Drug: morphine 4 mg Route: IVP; Site: right antecubital; iw 20:20 Follow up: Response: No adverse reaction sf 16:48 Drug: Zofran (Ondansetron) 4 mg Route: IVP; Site: right antecubital; iw 20:20 Follow up: Response: No adverse reaction sf 17:46 Drug: NS 0.9% 1000 ml Route: IV; Rate: 1000 ml; Site: right antecubital; iw 19:00 Follow up: IV Status: Completed infusion; IV Intake: 1000ml sf 18:35 Drug: Tylenol 1000 mg Route: PO; iw 11/26 00:00 Follow up: Response: No adverse reaction; Temperature is decreased sf 11/25 19:00 Drug: NS 0.9% 1000 ml Route: IV; Rate: 150 ml/hr; Site: right antecubital; sf 21:00 Follow up: IV Status: Infusion continued upon admission sf Intake: 19:00 IV: 1000ml; Total: 1000ml. sf 19:00 IV: 1000ml; Total: 2000ml. sf 20:20 IV: 50ml; Total: 2050ml. sf Outcome: 18:17 Decision to Hospitalize by Provider. pm1 21:00 Admitted to ER Hold. Please see [facility] for further documentation. sf 21:00 Condition: stable 21:00 Instructed on the need for admit. 11/26 18:02 Patient left the ED. Signatures: Dispatcher [employer] EDMS Jil Qulies Mary mr Sinai Vann RN ADRIEN Anthony Garcia, WORKFORCE CONSULTANT WORKFORCE CONSULTANT pm1 Karen Handley RN RN Ruben Hardin RN RN [facility] Praveen Chaney RN RN Brittny Myles RN RN Corrections: (The following items were deleted from the chart) 11/25 21:03 20:20 General: Appears uncomfortable, Behavior is calm, cooperative, sf sf
--- NOTE | 2020-11-25 18:17 | EDPHYS ---
Physician Documentation [facility] Name: Faviola Agustin Age: 35 yrs Sex: Female : 1985 Arrival Date: 11/25/2020 Time: 13:51 Bed 18 Private MD: ED Physician Rohit Aguila HPI: 11/25 14:39 This 35 yrs old Female presents to ER via Ambulatory with complaints of pm1 Abdominal Pain, Nausea. 14:39 The patient presents with right flank pain and RLQ abdominal pain. Onset: The pm1 symptoms/episode began/occurred 2 day(s) ago. Associated signs and symptoms: Pertinent positives: nausea, vomiting, Burning with urination, Pertinent negatives: chest pain, shortness of breath. The symptoms are described as achy, constant. Modifying factors: The symptoms are alleviated by nothing, the symptoms are aggravated by nothing. Severity of pain: in the emergency department the pain is actually worse. The patient has not experienced similar symptoms in the past. The patient has not recently seen a physician. Historical: - Allergies: 14:10 No Known Allergies; ll1 - PMHx: 14:10 Seizures; ll1 - PSHx: 14:10 facial reconstruction; ll1 - Immunization history:: Flu vaccine is not up to date. - Social history:: Smoking status: Patient denies any tobacco usage or history of. ROS: 14:39 Constitutional: Negative for fever, chills, and weight loss. pm1 14:39 Cardiovascular: Negative for chest pain, palpitations, and edema, Respiratory: Negative for shortness of breath, cough, wheezing, and pleuritic chest pain. 14:39 MS/Extremity: Negative for injury and deformity, Skin: Negative for injury, rash, and discoloration. 14:39 Neuro: Negative for headache, weakness, numbness, tingling, and seizure. 14:39 Abdomen/GI: Positive for abdominal pain, of the right lower quadrant. 14:39 Back: Positive for flank pain, on the right. 14:39 : Positive for burning with urination. Exam: 14:39 Skin: Warm, dry with normal turgor. Normal color with no rashes, no lesions, and no pm1 evidence of cellulitis. MS/ Extremity: Pulses equal, no cyanosis. Neurovascular intact. Full, normal range of motion. 14:39 Head/Face: Normocephalic, atraumatic. 14:39 Cardiovascular: Rate: tachycardic, actual rate is 124 bpm, Rhythm: regular, Pulses: no pulse deficits are appreciated, Edema: is not appreciated. 14:39 Respiratory: Exam negative for acute changes, respiratory distress, shortness of breath. 14:39 Abdomen/GI: Inspection: abdomen appears normal, Palpation: soft, in all quadrants, moderate abdominal tenderness, in the right lower quadrant. 14:39 Back: pain, that is moderate, of the right low back. 14:39 Neuro: Exam negative for acute changes, Orientation: is normal, Mentation: is normal, Motor: is normal, moves all fours, Sensation: is normal, no obvious gross deficits. 14:39 Constitutional: The patient appears alert, awake, well developed, well hydrated, well pm1 groomed, well nourished, obviously ill, in obvious pain. Vital Signs: 14:08 BP 133 / 74; Pulse 124; Resp 18; Temp 97.8; Pulse Ox 99% ; Weight 49.9 kg; Height 5 ft. ll1 6 in. (167.64 cm); Pain 9/10; 15:28 BP 113 / 70; Pulse 112; Resp 16; Pulse Ox 99% on R/A; iw 16:49 BP 103 / 61; Pulse 106; Resp 16; Pulse Ox 98% on R/A; iw 17:23 BP 102 / 79; Pulse 111; Resp 16 S; Pulse Ox 99% on R/A; iw 20:01 BP 116 / 66; Pulse 115; Resp 18; Pulse Ox 98% ; sf 20:23 Temp 100.8; sf 14:08 Body Mass Index 17.75 (49.90 kg, 167.64 cm) ll1 MDM: 14:12 Patient medically screened. pm1 16:17 Data reviewed: vital signs. Data interpreted: Pulse oximetry: on room air is 99 %. pm1 Interpretation: normal. Counseling: I had a detailed discussion with the patient and/or guardian regarding: the historical points, exam findings, and any diagnostic results supporting the discharge/admit diagnosis, lab results, radiology results. 18:14 Counseling: I had a detailed discussion with the patient and/or guardian regarding: the pm1 need for further work-up and treatment in the hospital, Patient agrees to stay in the hospital because she feels that she may not be able to tolerate PO at home. 19:07 Physician consultation: José AGUILAR was contacted at 19:07, regarding admission, pm1 patient's condition, and will see patient admit to Dr. Alvarado. 11/25 14:20 Order name: Basic Metabolic Panel; Complete Time: 15:15 pm1 11/25 14:20 Order name: CBC with Diff; Complete Time: 15:15 pm1 11/25 14:20 Order name: Hepatic Function; Complete Time: 15:15 pm1 11/25 14:20 Order name: Lipase; Complete Time: 15:15 pm1 11/25 14:20 Order name: Urine Microscopic Only; Complete Time: 15:07 pm1 11/25 14:37 Order name: Urine Dipstick--Ancillary (enter results); Complete Time: 15:07 bd 11/25 14:37 Order name: Urine --Ancillary (enter results); Complete Time: 15:07 bd 11/25 15:07 Order name: Urine Culture EDWV 11/25 17:57 Order name: Blood Culture Adult (2) pm1 11/25 17:57 Order name: Blood Culture EDWV 11/25 21:05 Order name: COVID-19 : Document "Date of Symptom Onset" if Symptomatic. mw2 11/25 23:41 Order name: SARS-COV-2 RT PCR; Complete Time: 23:42 EDMS 11/26 01:58 Order name: CREATININE WHOLE BLOOD EDWV 11/26 06:25 Order name: Basic Metabolic Panel EDWV 11/25 14:20 Order name: IV Saline Lock; Complete Time: 14:51 pm1 11/25 14:20 Order name: Labs collected and sent; Complete Time: 14:51 pm1 11/25 14:20 Order name: CT Abd/Pelvis - IV Contrast Only; Complete Time: 15:21 pm11/25 14:20 Order name: Urine Dipstick-Ancillary (obtain specimen); Complete Time: 14:37 pm1 11/26 06:28 Order name: CBC with Automated Diff EDWV 11/25 14:20 Order name: Urine Test (obtain specimen); Complete Time: 14:37 pm1 Administered Medications: 14:50 Drug: NS 0.9% 1000 ml Route: IV; Rate: 1000 ml; Site: right antecubital; iw 19:00 Follow up: IV Status: Completed infusion; IV Intake: 1000ml sf 14:51 Drug: morphine 4 mg Route: IVP; Site: right antecubital; iw 20:21 Follow up: Response: No adverse reaction sf 14:51 Drug: Zofran (Ondansetron) 4 mg Route: IVP; Site: right antecubital; iw 20:21 Follow up: Response: No adverse reaction sf 15:28 Drug: Rocephin (cefTRIAXone) 1 grams Route: IV; Rate: calculated rate; Site: right iw antecubital; 20:20 Follow up: IV Status: Completed infusion; IV Intake: 50ml sf 16:48 Drug: morphine 4 mg Route: IVP; Site: right antecubital; iw 20:20 Follow up: Response: No adverse reaction sf 16:48 Drug: Zofran (Ondansetron) 4 mg Route: IVP; Site: right antecubital; iw 20:20 Follow up: Response: No adverse reaction sf 17:46 Drug: NS 0.9% 1000 ml Route: IV; Rate: 1000 ml; Site: right antecubital; iw 19:00 Follow up: IV Status: Completed infusion; IV Intake: 1000ml sf 18:35 Drug: Tylenol 1000 mg Route: PO; 11/26 00:00 Follow up: Response: No adverse reaction; Temperature is decreased sf 11/25 19:00 Drug: NS 0.9% 1000 ml Route: IV; Rate: 150 ml/hr; Site: right antecubital; sf 21:00 Follow up: IV Status: Infusion continued upon admission sf Disposition: 11/26 18:12 Co-signature as Attending Physician, Rohit Aguila MD. rn Disposition: 11/25/20 18:17 Hospitalization ordered by Darien Alvarado for Inpatient Admission. Preliminary diagnosis are Pyelonephritis, Nausea and vomiting. - Bed requested for Telemetry/MedSurg (Inpatient). - Status is Inpatient Admission. hb - Condition is Stable. - Problem is new. - Symptoms have improved. Signatures: Dispatcher [employer] EDMS Jil Quiles Irene, RN RN Rohit Aguila MD MD rn Garcia, Cindy, RN RN cg Marinas, Patrick, FLOORING HELPER FLOORING HELPER pm1 Karen Handley RN RN hb Lewis, Lynsay RN RN 1 Praveen Chaney RN RN sf Corrections: (The following items were deleted from the chart) 11/25 18:44 14:39 Constitutional: This is a well developed, well nourished patient who is awake, pm1 alert, and in no acute distress. Head/Face: Normocephalic, atraumatic. pm1 19:07 18:17 Hospitalization Ordered by José AGUILAR for Inpatient Admission. Preliminary pm1 diagnosis is Pyelonephritis; Nausea and vomiting. Bed requested for Telemetry/MedSurg (Inpatient). Status is Inpatient Admission. Condition is Stable. Problem is new. Symptoms have improved. pm1 23:20 19:07 11/25/2020 18:17 Hospitalization Ordered by Darien Alvarado for Inpatient cg Admission. Preliminary diagnosis is Pyelonephritis; Nausea and vomiting. Bed requested for Telemetry/MedSurg (Inpatient). Status is Inpatient Admission. Condition is Stable. Problem is new. Symptoms have improved. pm1 11/26 15:33 11/25 23:20 11/25/2020 18:17 Hospitalization Ordered by Darien Alvarado for Inpatient bd Admission. Preliminary diagnosis is Pyelonephritis; Nausea and vomiting. Bed requested for [facility] ER HOLD. Status is Inpatient Admission. Condition is Stable. Problem is new. Symptoms have improved. cg 11/26 18:02 15:33 11/25/2020 18:17 Hospitalization Ordered by Darien Alvarado for Inpatient hb Admission. Preliminary diagnosis is Pyelonephritis; Nausea and vomiting. Bed requested for Telemetry/MedSurg (Inpatient). Status is Inpatient Admission. Condition is Stable. Problem is new. Symptoms have improved. bd
[2020-11-25] MEDS ORDERED: ACETAMINOPHEN 500 MG TAB ONE (18:41)
[2020-11-25] MEDS: NA CHLORIDE 0.9% 1,000 ML IV SCH (19:00)
[2020-11-25] MEDS ORDERED: FENTANYL CITR 100 MCG/2 ML ONE (19:11)
--- NOTE | 2020-11-25 21:57 | P.HP ---
Certification for Inpatient Patient admitted to: Observation With expected LOS: <2 Midnights Patient will require the following post-hospital care: None Practitioner: I am a practitioner with admitting privileges, knowledge of patient current condition, hospital course, and medical plan of care. Services: Services provided to patient in accordance with Admission requirements found in Title 42 Section 412.3 of the Code of Federal Regulations <José Adams - Last Filed: 11/25/20 21:50> Patient History Date of Service: 11/25/20 Primary Care Provider: [facility] Reason for admission: pyelonephritis History of Present Illness: Ms. Agustin is a 35 yo female with 3 days of 10/10 right lower quadrant and right flank pain. Initially she thought she pulled a muscle due to the shooting pain so she drank pedialyte with no relief. She reports fever, chills, night sweats, nausea, vomiting, dysuria, urgency. Unable to tolerate PO. No BM for two days. She denies hematuria, frequency. Mild relief of pain with heating pad, worse with any movement. WBC 14.3. Urinalysis with 2+ ketones, 2+ blood, +nitrites, trace leukocyte esterase, 5-10 RBCs, 10-20 WBCs, 20-50 Bacteria, 2+ protein. CT scan consistent with pyelonephritis/ureteritis. Home medications list reviewed: No - Past Medical/Surgical History Has patient received pneumonia vaccine in the past: No Diabetic: No Past Medical History: Patient denies medical history -: right facial reconstructiong surgery 2019 - Family History Mother -: Hypertension - Social History Smoking Status: Never smoker Alcohol use: No CD- Drugs: No Caffeine use: No Place of Residence: Home <José Adams - Last Filed: 11/25/20 21:50> Date of Service: 11/26/20 <siddharth prieto - Last Filed: 11/26/20 15:33> Allergies acetaminophen [From Vicodin] Allergy (Verified 06/08/12 20:51) NASUEA hydrocodone bitartrate [From Vicodin] Allergy (Verified 06/08/12 20:51) NASUEA Review of Systems General: Fever, Chills, Sweats, As per HPI Eyes: Unremarkable ENT: Unremarkable Respiratory: Unremarkable Cardiovascular: Unremarkable Gastrointestinal: Nausea, Vomiting, Abdominal Pain, As per HPI Genitourinary: Dysuria, Urgency, As per HPI Musculoskeletal: Unremarkable Integumentary: Unremarkable Neurological: Unremarkable Lymphatics: Unremarkable <José Adams - Last Filed: 11/25/20 21:50> Physical Examination - Vital Signs Temperature: 97.8 F Blood Pressure: 133/74 Pulse: 124 Respirations: 18 Pulse Ox (%): 99 - Physical Exam General: Alert, Oriented x3, Cooperative HEENT: Atraumatic, Normocephalic, PERRLA, Mucous membr. moist/pink, EOMI, Sclerae nonicteric Neck: Supple, 2+ carotid pulse no bruit, JVD not distended, No Thyromegaly, No LAD Respiratory: Clear to auscultation bilaterally, Normal air movement Cardiovascular: No edema, Normal pulses, Normal S1 S2, No gallops, No rubs, No murmurs, Other (regular rhythm, tachycardic) Capillary refill: <2 Seconds Gastrointestinal: Normal bowel sounds, Soft and benign, Non-distended, No ascites, No masses, No rebound, No guarding, Tenderness Musculoskeletal: No clubbing, No swelling, No contractures, No erythema, No tenderness, No warmth Integumentary: No rashes, No breakdown, No significant lesion, No tenderness/swelling, No erythema, No warmth, No cyanosis Neurological: Normal gait, Normal speech, Normal strength at 5/5 x4 extr, Normal tone, Sensation intact, Cranial nerves 3-12 intact, Normal affect Lymphatics: No axilla or inguinal lymphadenopathy - Studies Laboratory Data (last 24 hrs) 11/25/20 14:49: WBC 14.30 H, Hgb 12.5, Hct 37.6, Plt Count 218 11/25/20 14:49: Sodium 137, Potassium 3.6, BUN 6 L, Creatinine 0.67, Glucose 99, Total Bilirubin 0.6, AST 10 L, ALT 17, Alkaline Phosphatase 87, Lipase 53 L <José Adams - Last Filed: 11/25/20 21:50> - Studies Laboratory Data (last 24 hrs) 11/26/20 05:45: Sodium 142, Potassium 3.6, BUN 5 L, Creatinine 0.45 L, Glucose 83 11/26/20 05:45: WBC 11.90 H D, Hgb 10.4 L, Hct 31.3 L D, Plt Count 175 <siddharth prieto - Last Filed: 11/26/20 15:33> Assessment and Plan - Problems (Diagnosis) (1) Pyelonephritis Current Visit: Yes Status: Acute Plan: - 1 g ceftriaxone IV once daily - continue to hydrate with IV fluids - clear liquid diet until able to tolerate PO - Zofran for nausea, morphine for pain management, tylenol for fever control (per patient, not allergic to acetaminophen or hydrocodone) - await urine culture and blood culture - CT scan shows pyelonephritis/ureteritis (2) Encounter for other plastic and reconstructive surgery following medical procedure or healed injury Current Visit: Yes Status: Chronic Plan: - patient had right facial reconstructive surgery 1 year ago. will reconcile and continue home doses of Lyrica and alprazolam. stable, continue to monitor. Discharge Plan: Home Plan to discharge in: 24 Hours - Advance Directives Does patient have a Living Will: No Does patient have a Durable POA for Healthcare: No - Code Status/Comfort Care Code Status Assessed: Yes (full code) Critical Care: No Time Spent Managing Pts Care (In Minutes): 70 <José dAams - Last Filed: 11/25/20 21:50> Physician Review: Patient Assessed, Agree with Above Assessment and Plan Physician Review Additional Text: Diagnosis: Acute pyelonephritis. Plan: Continue IV Rocephin Pain management as needed Follow urine culture. <siddharth prieto - Last Filed: 11/26/20 15:33>
[2020-11-25 22:25] VITALS: BMI 17.4
[2020-11-25] MEDS ORDERED: ACETAMINOPHEN 325 MG TABLET PO PRN (22:25)
[2020-11-25] MEDS: MORPHINE 2 MG/ML SYR IV PRN (22:34)
[2020-11-25] MEDS ORDERED: MORPHINE 2 MG/ML SYR ONE (22:49)
[2020-11-26] MEDS: MORPHINE 2 MG/ML SYR IV PRN ×4 (02:38→18:54)
[2020-11-26] MEDS ORDERED: MORPHINE 2 MG/ML SYR ONE ×3 (02:53→08:48)
[2020-11-26] MEDS: ONDANSETRON 4 MG/2 ML VIAL IV PRN (04:18)
[2020-11-26] MEDS ORDERED: ONDANSETRON 4 MG/2 ML VIAL ONE (04:32)
[2020-11-26 06:15] LABS: Basophils % 0.5 % (0-1.3); Hematocrit 31.3 % (36.0-45.0); Lymphocytes % 8.5 % (15.3-44.8); MPV 9.2 fL (7.6-11.3); RBC Red Blood Cell Count 3.17 M/uL (3.86-4.86)
[2020-11-26 06:23] LABS: BUN Blood Urea Nitrogen 5 mg/dL (7-18); Bicarbonate 21 mmol/L (21-32); Glucose Level 83 mg/dL (74-106); Potassium 3.6 mmol/L (3.5-5.1); Sodium Level 142 mmol/L (136-145)
[2020-11-26] MEDS: ALPRAZOLAM 1 MG TABLET PO SCH ×3 (09:00→22:14)
[2020-11-26] MEDS: PREGABALIN 50 MG CAP PO SCH ×3 (09:00→21:15)
[2020-11-26] MEDS ORDERED: CEFTRIAXONE 1 GM/NS 50 ML 1 GM/50 ML BAG IV SCH (09:00)
[2020-11-26] MEDS: ENOXAPARIN 40 MG/0.4 ML SQ SCH (09:00)
[2020-11-26] MEDS: CEFTRIAXONE/SWI 1gm 1 GM/10 ML SYR IV SCH (09:00)
[2020-11-26] MEDS ORDERED: PREGABALIN 50 MG CAP ONE (12:13)
[2020-11-26] MEDS ORDERED: ALPRAZOLAM 1 MG TABLET ONE (12:13)
[2020-11-26] MEDS ORDERED: CEFTRIAXONE/SWI 1gm 1 GM/10 ML SYR ONE (12:14)
[2020-11-26] MEDS ORDERED: ENOXAPARIN 40 MG/0.4 ML SQ ONE (12:14)
[2020-11-26] MEDS: NA CHLORIDE 0.9% 1,000 ML IV SCH ×2 (14:30→18:25)
--- NOTE | 2020-11-26 15:36 | P.PN ---
Subjective Date of Service: 11/26/20 Primary Care Provider: GEORGINA Grant Chief Complaint: pyelonephritis Patient states her right flank pain is better. She has afebrile. She is tolerating feeding. Urine culture is growing Gram negative rods. Physical Examination - Vital Signs Temperature: 99.1 F Blood Pressure: 118/79 Pulse: 98 Respirations: 20 Pulse Ox (%): 97 - Physical Exam General: Alert, In no apparent distress, Oriented x3 HEENT: Mucous membr. moist/pink Neck: Supple, JVD not distended Respiratory: Clear to auscultation bilaterally, Normal air movement Cardiovascular: No edema, Regular rate/rhythm, Normal S1 S2 Gastrointestinal: Soft and benign, Non-distended, No tenderness Musculoskeletal: No swelling, No tenderness Integumentary: No rashes, No erythema Neurological: Normal speech, Normal strength at 5/5 x4 extr, Cranial nerves 3-12 intact - Studies Laboratory Data (last 24 hrs) 11/26/20 05:45: Sodium 142, Potassium 3.6, BUN 5 L, Creatinine 0.45 L, Glucose 83 11/26/20 05:45: WBC 11.90 H D, Hgb 10.4 L, Hct 31.3 L D, Plt Count 175 Assessment And Plan - Current Problems (Diagnosis) (1) Pyelonephritis Current Visit: Yes Status: Acute (2) Anxiety disorder Current Visit: Yes Status: Acute - Plan Continue IV Rocephin. Follow urine culture Pain management as needed Continue home dose anxiety medications.
[2020-11-26] MEDS ORDERED: NA CHLORIDE 0.9% 1,000 ML ONE (16:32)
[2020-11-26] MEDS ORDERED: ACETAMINOPHEN 325 MG TABLET ONE (16:32)
[2020-11-26 23:56] VITALS: O2SAT 100
[2020-11-27] MEDS: NA CHLORIDE 0.9% 1,000 ML IV SCH ×2 (02:52→04:25)
[2020-11-27] MEDS: MORPHINE 2 MG/ML SYR IV PRN ×2 (03:07→08:56)
[2020-11-27] MEDS: ONDANSETRON 4 MG/2 ML VIAL IV PRN (03:07)
[2020-11-27 06:16] LABS: Absolute Lymphocytes (CBC) 0.9 K/uL (0.7-4.9); Basophils % 0.5 % (0-1.3); Hematocrit 29.8 % (36.0-45.0); Lymphocytes % 14.5 % (15.3-44.8); MPV 9.1 fL (7.6-11.3); RBC Red Blood Cell Count 3.04 M/uL (3.86-4.86)
[2020-11-27 06:17] LABS: BUN Blood Urea Nitrogen 4 mg/dL (7-18); Bicarbonate 22 mmol/L (21-32); Glucose Level 82 mg/dL (74-106); Potassium 3.5 mmol/L (3.5-5.1); Sodium Level 138 mmol/L (136-145)
[2020-11-27] MEDS: CEFTRIAXONE/SWI 1gm 1 GM/10 ML SYR IV SCH (08:46)
[2020-11-27] MEDS: ENOXAPARIN 40 MG/0.4 ML SQ SCH (08:46)
[2020-11-27] MEDS: PREGABALIN 50 MG CAP PO SCH ×2 (08:46→13:59)
[2020-11-27] MEDS: ALPRAZOLAM 1 MG TABLET PO SCH ×2 (08:46→13:59)
--- NOTE | 2020-11-27 11:47 | P.DS ---
Admission Date: 11/26/20 Discharge Date: 11/27/20 Primary Care Provider: GEORGINA Grant Disposition: ROUTINE DISCHARGE Discharge Condition: FAIR Reason for Admission: pyelonephritis - Problems (1) Sepsis Current Visit: Yes Status: Acute (2) Pyelonephritis Current Visit: Yes Status: Acute (3) Anxiety disorder Current Visit: Yes Status: Acute Brief History of Present Illness: 35-year-old patient with a history of right facial reconstruction surgery presented to the emergency department with a complaint of sharp shooting pain in the right flank radiating to the suprapubic area, associated fever, chills and nausea. Workup in the emergency department revealed urinary tract infection. CT abdomen and pelvis demonstrated findings suggestive of right pyelonephritis. She had mild leukocytosis and febrile with a temperature of 100.8. Patient was admitted for further management. Hospital Course: Patient admitted to the medical floor and treated with IV Rocephin. Urine culture grew pansensitive E. coli. Blood culture yielded no growth. Patient tolerated feeding. Her right flank pain improved. She is afebrile today. Patient is discharged with oral Augmentin to continue treatment for acute pyelonephritis. Vital Signs/Physical Exam: Temp Pulse Resp BP Pulse Ox 97.2 F 96 H 18 117/75 99 11/27/20 08:00 11/27/20 08:00 11/27/20 08:00 11/27/20 08:00 11/27/20 08:00 General: Alert, In no apparent distress, Oriented x3 Neck: Supple Respiratory: Clear to auscultation bilaterally, Normal air movement Cardiovascular: No edema, Regular rate/rhythm, Normal S1 S2 Gastrointestinal: Soft and benign, Non-distended, No tenderness Musculoskeletal: No swelling Integumentary: No rashes Neurological: Normal strength at 5/5 x4 extr, Cranial nerves 3-12 intact Laboratory Data at Discharge: WBC 6.20 K/uL (4.3-10.9) D 11/27/20 05:46 Hgb 10.1 g/dL (12.0-15.0) L 11/27/20 05:46 Hct 29.8 % (36.0-45.0) L 11/27/20 05:46 Plt Count 169 K/uL (152-406) 11/27/20 05:46 Sodium 138 mmol/L (136-145) 11/27/20 05:46 Potassium 3.5 mmol/L (3.5-5.1) 11/27/20 05:46 BUN 4 mg/dL (7-18) L 11/27/20 05:46 Creatinine 0.44 mg/dL (0.55-1.3) L 11/27/20 05:46 Glucose 82 mg/dL (74-106) 11/27/20 05:46 Total Bilirubin 0.6 mg/dL (0.2-1.0) 11/25/20 14:49 AST 10 U/L (15-37) L 11/25/20 14:49 ALT 17 U/L (12-78) 11/25/20 14:49 Alkaline Phosphatase 87 U/L (45-117) 11/25/20 14:49 Lipase 53 U/L (73-393) L 11/25/20 14:49 Home Medications: Alprazolam [Xanax] 2 mg PO TID 11/25/20 Pregabalin [Lyrica*] 50 mg PO TID 11/25/20 Amox/Clavulanate [Augmentin 875-125 Tab] 875 mg PO BID #20 tab 11/27/20 Tramadol HCl [Ultram] 50 mg PO Q6H PRN #30 tablet 11/27/20 New Medications: Amox/Clavulanate [Augmentin 875-125 Tab] 875 mg PO BID #20 tab Tramadol HCl [Ultram] 50 mg PO Q6H PRN #30 tablet PRN Reason: PAIN Followup: RADHA GARCIA [Primary Care Provider] - 1-2 Weeks Time spent managing pt's care (in minutes): 28
[2020-11-27 12:22] VITALS: BP 102/66; TEMP 98
== END 2020-11-27 15:46 | disposition home or self-care (01) | DRG 872 ==
LOC: ER 13:47 → ERHOLD 21:30 → OBSVTOIN 11-26 11:45 → 2ND 11-26 17:48
PROVIDERS: ADMIT Internal Medicine; ATTEND Internal Medicine
DX: A41.51 Sepsis due to Escherichia coli [E. coli] (principal); N10 Acute pyelonephritis; F41.9 Anxiety disorder, unspecified; Z88.8 Allergy status to other drugs, medicaments and biological substances; Z48.89 Encounter for other specified surgical aftercare; Z79.899 Other long term (current) drug therapy; Z20.822 Contact with and (suspected) exposure to COVID-19
CPT/HCPCS: 36415; 74177; 80048; 80076; 81003; 81015; 81025; 82565; 83690; 85025; 87040; 87077; 87086; 87088; 87186; 96361; 96365; 96366; 96375; 99285; G0378; J0696; J1650; J2270; J2405; J3010; J7030; Q9967; U0003

== ENCOUNTER 2024-02-23 21:52 | Emergency (ER) | payer OTHER ==
--- OUTSIDE RECORDS SUMMARY | 2024-02-23 21:58 | XMS REPORT | Continuity of Care Document ---
Author Name Unknown Address [address] [facility] [address] [place] [address] [facility] thconnect Address [address] [facility]. [address] [place] [address] Care Team Providers Care Member Service Specialist Name Role Phone Batsheva Cadet Primary Care Physicia n JR DUMONT Attending Clinician Unavail able GLENIS JACOB Attending Clinician UnavailMallory Kingston Attending Clinician [phone] Doctor Unassigned, [place] Attending Clinician U elderailBATSHEVA Estrada Attending Clinician Unavail Batsheva Carvajal Attending Clinician + CEDRICK CHANCE Attending Clinician UnavailNaveen Bae Attending Clinician Unava ilTIKA Brantley Attending Clinician Unavailable JUANCARLOS WAKEFIELD Attending Clinician Unavail able JUANCARLOS WAKEFIELD Attending Clinician Unavail able JAS LOTT Attending Clinician Unavailable NAVEEN HADLEY Attending Clinician Unavailab DAIANA Perry Attending Clinician Unavailable Juancarlos Wakefield MD Attending Clinician Visit, [facility] Nurse Attending Clinician Unava CRISTOPHER Dowd Attending Clinician Unavailable CRISTOPHER OLIVARES Attending Clinician Unavailable Ugo Stockton MD Attending Clinician [phone] Aman Ag Attending Clinician [phone] Tawanna Marroquin MD Attending Clinician [phone] TAWANNA MARROQUIN Attending Clinician Unavailable MAC LABOY Attending Clinician Unavailable Payers Payer Name Policy Type Policy Number Effective Date Expirati on Date Source [facility] MEDICAID [id number] 2019 00:00:00 [place] [id number] 2022 00:00:00 [facility] MEDICAID STAR [id number] 2020 00:00:00 Problems Condition Name Condition Details Condition Category Status Onset Date Resolution Date Last Treatment Date Treating Clinician Comments Source Unsteadine ss Unsteadine ss Disease Active 03-31 00:00: 00 [facility] Screening examinatio n for STD (sexually transmitte d disease) Screening examinatio n for STD (sexually transmitte d disease) Disease Active 01-06 00:00: 00 [facility] Fatigue Fatigue Disease Active 01-06 00:00: 00 [facility] Generalize d anxiety disorder Generalize d anxiety disorder Disease Active 10-28 00:00: 00 [facility] Allergies, Adverse Reactions, Alerts Allergy Name Allergy Type Status Severity Reaction(s) Onset Date Inactive Date Treating Clinician Comments Source NO KNOWN ALLERGIE S Drug Class Active [facility] Social History Social Habit Start Date Stop Date Quantity Comments Source Gender identity [facility] Sexual [facility] History of Social function 2023-03-24 00:00:00 2023-03-24 00:00:00 [facility] Exposure to SARS-CoV-2 (event) 2022-08-25 00:00:00 2022-09-04 04:33:00 Not sure [facility] Alcohol intake 2022-02-23 00:00:00 2022-02-23 00:00:00 0 /d [facility] Tobacco use and exposure 2016-01-07 00:00:00 2016-01-07 00:00:00 Smokeless tobacco non-user [facility] History of tobacco use 2014-01-06 00:00:00 Cigarette Smoker [facility] Sex Assigned At 1985 00:00:00 1985 00:00:00 [facility] Smoking Status Start Date Stop Date Source Ex-smoker 2016-01-07 00:00:00 2016[facility] Ordered Medication Name Filled Medication Name Start Date Stop Date Current Medication? Ordering Clinician Indication Dosage Frequency Signature (SIG) Comments Components Source pregabalin 150 mg capsule 05-24 00:00: 00 Yes [id number] 150mg Take 1 capsule by mouth in the morning and 1 capsule at noon and 1 capsule in the evening. [facility] pregabalin 150 mg capsule - 00:00: 00 05-24 00:00 :00 No [id number] 150mg Take 1 capsule by mouth in the morning and 1 capsule at noon and 1 capsule in the evening. [facility] norgestimat e-ethinyl estradioL (ORTHO TRI-CYCLEN , 28,) 0.18/0.215/ 0.25 mg-25 mcg tablet 03-24 00:00: 00 Yes [id number] 1{tbl} Take 1 tablet by mouth in the morning. [facility] norgestimat e-ethinyl estradioL (ORTHO TRI-CYCLEN LO, 28,) 0.18/0.215/ 0.25 mg-25 mcg tablet -08 00:00: 00 03-24 00:00 :00 No [id number] 1{tbl} Take 1 tablet by mouth in the morning. [facility] norgestimat e-ethinyl estradioL (ORTHO TRI-CYCLEN LO, 28,) 0.18/0.215/ 0.25 mg-25 mcg tablet 4-19 00:00: 00 02-11 00:00 :00 No [id number] 1{tbl} Take 1 tablet by mouth in the morning. [facility] pregabalin 150 mg capsule 2022-0 3-27 00:00: 00 04-05 00:00 :00 No [id number] 150mg Take 1 capsule by mouth in the morning and 1 capsule at noon and 1 capsule in the evening. [facility] pregabalin 150 mg capsule 2021-09 1-29 00:00: 00 11-26 00:00 :00 No [id number] 150mg Take 1 capsule by mouth in the morning and 1 capsule at noon and 1 capsule in the evening. [facility] pregabalin 150 mg capsule 0 6-20 00:00: 00 08-04 00:00 :00 No [id number] 150mg Take 1 capsule by mouth 3 (three) times daily. [facility] norgestimat e-ethinyl estradioL (ORTHO TRI-CYCLEN LO, 28,) 0.18/0.215/ 0.25 mg-25 mcg tablet 4-12 00:00: 00 12-23 00:00 :00 No [id number] 1{tbl} Take 1 tablet by mouth daily. [facility] pregabalin 100 mg capsule 2021-0 2-25 00:00: 00 02-23 00:00 :00 No [id number] 100mg Take 1 capsule by mouth 3 (three) times daily. [facility] ondansetron 4 mg disintegrat ing tablet 2020-0 8-25 00:00: 00 03-24 00:00 :00 No [id number] 4mg Take 1 tablet by mouth every 4 (four) hours as needed for Nausea and Vomiting (N/V). [facility] ALPRAZolam 2 mg tablet 3-18 00:00: 00 Yes TAKE ONE (1) TABLET(S) BY MOUTH THREE TIMES A DAY. [facility] Immunizations Ordered Immunization Name Filled Immunization Name Date Status Comments Source TDAP 2013-11-14 00:00:00 Completed [facility] TDAP 2013-11-14 00:00:00 Completed [facility] TDAP 2013-11-14 00:00:00 Completed [facility] TDAP 2013-11-14 00:00:00 Completed [facility] TDAP 2013-11-14 00:00:00 Completed [facility] TDAP 2013-11-14 00:00:00 Completed [facility] TDAP 2013-11-14 00:00:00 Completed [facility] TDAP 2013-11-14 00:00:00 Completed [facility] TDAP 2013-11-14 00:00:00 Completed [facility] TDAP 2013-11-14 00:00:00 Completed [facility] TDAP 2013-11-14 00:00:00 Completed [facility] TDAP 2013-11-14 00:00:00 Completed [facility] TDAP 2013-11-14 00:00:00 Completed [facility] TDAP 2013-11-14 00:00:00 Completed [facility] TDAP 2013-11-14 00:00:00 Completed [facility] TDAP 2013-11-14 00:00:00 Completed [facility] TDAP 2013-11-14 00:00:00 Completed [facility] TDAP 2013-11-14 00:00:00 Completed [facility] TDAP 2013-11-14 00:00:00 Completed [facility] TDAP 2013-11-14 00:00:00 Completed [facility] TDAP 2013-11-14 00:00:00 Completed [facility] TDAP 2013-11-14 00:00:00 Completed [facility] TDAP 2013-11-14 00:00:00 Completed [facility] TDAP 2013-11-14 00:00:00 Completed [facility] TDAP 2013-11-14 00:00:00 Completed [facility] TDAP 2013-11-14 00:00:00 Completed [facility] HPV 2011-03-23 00:00:00 Completed [facility] HPV 2011-03-23 00:00:00 Completed [facility] HPV 2011-03-23 00:00:00 Completed [facility] HPV 2011-03-23 00:00:00 Completed [facility] HPV 2011-03-23 00:00:00 Completed [facility] HPV 2011-03-23 00:00:00 Completed [facility] HPV 2011-03-23 00:00:00 Completed [facility] HPV 2011-03-23 00:00:00 Completed [facility] HPV 2011-03-23 00:00:00 Completed [facility] HPV 2011-03-23 00:00:00 Completed [facility] HPV 2011-03-23 00:00:00 Completed [facility] HPV 2011-03-23 00:00:00 Completed [facility] HPV 2011-03-23 00:00:00 Completed [facility] HPV 2011-03-23 00:00:00 Completed [facility] HPV 2011-03-23 00:00:00 Completed [facility] HPV 2011-03-23 00:00:00 Completed [facility] HPV 2011-03-23 00:00:00 Completed [facility] HPV 2011-03-23 00:00:00 Completed [facility] HPV 2011-03-23 00:00:00 Completed [facility] HPV 2011-03-23 00:00:00 Completed [facility] HPV 2011-03-23 00:00:00 Completed [facility] HPV 2011-03-23 00:00:00 Completed [facility] HPV 2011-03-23 00:00:00 Completed [facility] HPV 2011-03-23 00:00:00 Completed [facility] HPV 2011-03-23 00:00:00 Completed [facility] HPV 2011-03-23 00:00:00 Completed [facility] HPV 2010-11-21 00:00:00 Completed [facility] HPV 2010-11-21 00:00:00 Completed [facility] HPV 2010-11-21 00:00:00 Completed [facility] HPV 2010-11-21 00:00:00 Completed [facility] HPV 2010-11-21 00:00:00 Completed [facility] HPV 2010-11-21 00:00:00 Completed [facility] HPV 2010-11-21 00:00:00 Completed [facility] HPV 2010-11-21 00:00:00 Completed [facility] HPV 2010-11-21 00:00:00 Completed [facility] HPV 2010-11-21 00:00:00 Completed [facility] HPV 2010-11-21 00:00:00 Completed [facility] HPV 2010-11-21 00:00:00 Completed [facility] HPV 2010-11-21 00:00:00 Completed [facility] HPV 2010-11-21 00:00:00 Completed [facility] HPV 2010-11-21 00:00:00 Completed [facility] HPV 2010-11-21 00:00:00 Completed [facility] HPV 2010-11-21 00:00:00 Completed [facility] HPV 2010-11-21 00:00:00 Completed [facility] HPV 2010-11-21 00:00:00 Completed [facility] HPV 2010-11-21 00:00:00 Completed [facility] HPV 2010-11-21 00:00:00 Completed [facility] HPV 2010-11-21 00:00:00 Completed [facility] HPV 2010-11-21 00:00:00 Completed [facility] HPV 2010-11-21 00:00:00 Completed [facility] HPV 2010-11-21 00:00:00 Completed [facility] HPV 2010-11-21 00:00:00 Completed [facility] HPV 2010-09-23 00:00:00 Completed [facility] HPV 2010-09-23 00:00:00 Completed [facility] HPV 2010-09-23 00:00:00 Completed [facility] HPV 2010-09-23 00:00:00 Completed [facility] HPV 2010-09-23 00:00:00 Completed [facility] HPV 2010-09-23 00:00:00 Completed [facility] HPV 2010-09-23 00:00:00 Completed [facility] HPV 2010-09-23 00:00:00 Completed [facility] HPV 2010-09-23 00:00:00 Completed [facility] HPV 2010-09-23 00:00:00 Completed [facility] HPV 2010-09-23 00:00:00 Completed [facility] HPV 2010-09-23 00:00:00 Completed [facility] HPV 2010-09-23 00:00:00 Completed [facility] HPV 2010-09-23 00:00:00 Completed [facility] HPV 2010-09-23 00:00:00 Completed [facility] HPV 2010-09-23 00:00:00 Completed [facility] HPV 2010-09-23 00:00:00 Completed [facility] HPV 2010-09-23 00:00:00 Completed [facility] HPV 2010-09-23 00:00:00 Completed [facility] HPV 2010-09-23 00:00:00 Completed [facility] HPV 2010-09-23 00:00:00 Completed [facility] HPV 2010-09-23 00:00:00 Completed [facility] HPV 2010-09-23 00:00:00 Completed [facility] HPV 2010-09-23 00:00:00 Completed [facility] HPV 2010-09-23 00:00:00 Completed [facility] HPV 2010-09-23 00:00:00 Completed [facility] Td 1998-09-06 00:00:00 Completed [facility] Td 1998-09-06 00:00:00 Completed [facility] Td 1998-09-06 00:00:00 Completed [facility] Td 1998-09-06 00:00:00 Completed [facility] Td 1998-09-06 00:00:00 Completed [facility] Td 1998-09-06 00:00:00 Completed [facility] Td 1998-09-06 00:00:00 Completed [facility] Td 1998-09-06 00:00:00 Completed [facility] Td 1998-09-06 00:00:00 Completed [facility] Td 1998-09-06 00:00:00 Completed [facility] Td 1998-09-06 00:00:00 Completed [facility] TD, NOS 1998-09-06 00:00:00 Completed [facility] TD, NOS 1998-09-06 00:00:00 Completed [facility] TD, NOS 1998-09-06 00:00:00 Completed [facility] TD, NOS 1998-09-06 00:00:00 Completed [facility] TD, NOS 1998-09-06 00:00:00 Completed [facility] TD, NOS 1998-09-06 00:00:00 Completed [facility] TD, NOS 1998-09-06 00:00:00 Completed [facility] TD, NOS 1998-09-06 00:00:00 Completed [facility] TD, NOS 1998-09-06 00:00:00 Completed [facility] TD, NOS 1998-09-06 00:00:00 Completed [facility] TD, NOS 1998-09-06 00:00:00 Completed [facility] TD, NOS 1998-09-06 00:00:00 Completed [facility] TD, NOS 1998-09-06 00:00:00 Completed [facility] TD, NOS 1998-09-06 00:00:00 Completed [facility] TD, NOS 1998-09-06 00:00:00 Completed [facility] HPV Unknown Completed [facility] HPV Unknown Completed [facility] HPV Unknown Completed [facility] TD, NOS Unknown Completed [facility] TDAP Unknown Completed [facility] HPV Unknown Completed [facility] HPV Unknown Completed [facility] HPV Unknown Completed [facility] TD, NOS Unknown Completed [facility] TDAP Unknown Completed [facility] HPV Unknown [facility]pleted [facility] HPV Unknown Completed [facility] HPV Unknown [facility]pleted [facility] TD[facility] NOS Unknown Completed [facility] TDAP Unknown Completed [facility] HPV Unknown Completed [facility] HPV Unknown Completed [facility] HPV Unknown Completed [facility] TD, NOS Unknown Completed [facility] TDAP Unknown Completed [facility] Vital Signs Vital Name Observation Time Observation Value Comments S ource Systolic blood pressure 2023-03-24 19:35:00 101 mm[Hg] [facility] Diastolic blood pressure 2023-03-24 19:35:00 71 mm[Hg] [facility] Heart rate 2023-03-24 19:35:00 91 /min [facility] Body temperature 2023-03-24 19:35:00 35.83 [facility] Respiratory rate 2023-03-24 19:35:00 18 /min [facility] Body height 2023-03-24 19:35:00 167.6 cm [facility] Body weight 2023-03-24 19:35:00 48.762 kg [facility] BMI 2023-03-24 19:35:00 17.35 kg/m2 [facility] Systolic blood pressure 2022-09-04 19:32:00 98 mm[Hg] [facility] Diastolic blood pressure 2022-09-04 19:32:00 58 mm[Hg] [facility] Heart rate 2022-09-04 19:32:00 76 /min [facility] Body height 2022-09-04 19:32:00 167.6 cm [facility] Body weight 2022-09-04 19:32:00 60.328 kg [facility] BMI 2022-09-04 19:32:00 21.47 kg/m2 [facility] Oxygen saturation in Arterial blood by Pulse oximetry 2022-09-04 19:32:00 98 /min [facility] Systolic blood pressure 2022-08-04 17:34:00 108 mm[Hg] [facility] Diastolic blood pressure 2022-08-04 17:34:00 68 mm[Hg] [facility] Body weight 2022-08-04 17:34:00 62.143 kg [facility] BMI 2022-08-04 17:34:00 21.78 kg/m2 [facility] Systolic blood pressure 2022-02-23 21:27:00 105 mm[Hg] [facility] Diastolic blood pressure 2022-02-23 21:27:00 69 mm[Hg] [facility] Body height 2022-02-23 21:27:00 168.9 cm [facility] Body weight 2022-02-23 21:27:00 59.875 kg [facility] BMI 2022-02-23 21:27:00 20.99 kg/m2 [facility] Procedures Procedure Date / Time Performed Performing Clinician Source POCT TEST 2023-03-24 21:05:00 Ganesh Toledo [facility] ASSIGNMENT OF BENEFITS 2023-03-24 19:25:09 Docto r Unassigned, [place] [facility] AUTHORIZATION FOR RELEASE OF PHI 2022-08-04 06:01:00 Doctor Unassigned, [place] [facility] Encounters Start Date/Time End Date/Time Encounter Type Admission Type Attending Clinicians Care Facility Care Department Encounter ID Source 2022-06-18 09:05:55 Outpatient [facility] [id number] [facility] 2021-07-07 17:52:23 Emergency [facility] [id number] [facility] 2021-07-07 10:36:28 Emergency [facility] [id number] [facility] 2020-05-21 11:27:39 Outpatient JULIA, JR [facility] [id number] [facility] 2019-11-10 14:36:23 Outpatient JULIA, JR [facility] [id number] [facility] 2019-05-20 08:17:00 Inpatient E [facility] [id number] [facility] 2023-06-24 17:17:00 2023-06-24 19:13:00 Emergency ER GLENIS JACOB [facility] [id number] [facility] 2023-05-17 00:00:00 2023-05-17 00:00:00 [facility] [id number] 350.1.13.10 4.2.7.2.686 [id number] [facility] 2023-04-15 00:00:00 2023-04-15 00:00:00 [facility] 1..840.114 350.1.13.10 4.2.7.2.686 [id number] [facility] 2023-04-13 00:00:00 2023-04-13 00:00:00 [facility] 1.84.114 350.1.13.10 4.2.7.2.686 [id number] [facility] 2023-04-01 00:00:00 2023-04-01 00:00:00 Patient Secure Msg Doctor Unassigned, [place] [facility] 1..840.114 350.1.13.10 4.2.7.2.686 [id number] [facility] 2023-03-24 14:45:00 2023-03-24 15:22:47 Outpatient R BATSHEVA TOLEDO [facility] [id number] [facility] 2023-03-24 14:45:00 2023-03-24 15:22:47 Office Visit Batsheva Toledo [facility] 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 [facility] 1.840.114 350.1.13.10 4.2.7.2.686 [id number] [facility] 2023-03-24 00:00:00 2023-03-24 00:00:00 Orders Only Doctor Unassigned, [place] [facility] [id number] 350.1.13.10 4.2.7.2.686 [id number] [facility] 2023-02-11 09:30:00 2023-02-11 09:30:00 Outpatient R BATSHEVA TOLEDO [facility] [id number] [facility] 2023-02-11 00:00:00 2023-02-11 00:00:00 Telephone Batsheva Toledo [facility] 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 [facility] [id number] 350.1.13.10 4.2.7.2.686 [id number] [facility] 2023-02-08 00:00:00 2023-02-08 00:00:00 Refill Batsheva Toledo [facility] 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 [facility] 1.2.840.114 350.1.13.10 4.2.7.2.686 [id number] [facility] 2023-01-27 14:30:00 2023-01-27 14:30:00 Outpatient R CEDRICK CHANCE [facility] [id number] [facility] 2023-01-27 00:00:00 2023-01-27 00:00:00 Patient Secure Msg Batsheva Toledo [facility] 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 [facility] 1.2840.114 350.1.13.10 4.2.7.2.686 [id number] [facility] 2023-01-04 00:00:00 2023-01-04 00:00:00 Refill Mallory Laws [facility] YOHANNES?[facility] 1.840.114 350.1.13.10 4.2.7.2.686 [id number] [facility] 2022-12-22 00:00:00 2022-12-22 00:00:00 Telephone Naveen Hadley [facility] 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 [facility] 1.2.840.114 350.1.13.10 4.2.7.2.686 [id number] [facility] 2022-12-18 14:00:00 2022-12-18 14:00:00 Outpatient R BATSHEVA TOLEDO [facility] [id number] [facility] 2022-12-18 14:00:00 2022-12-18 14:00:00 Outpatient R BATSHEVA TOLEDO [facility] [id number] [facility] 2022-11-26 00:00:00 2022-11-26 00:00:00 Refdennis Laws Mallory [facility] 1..840.114 350.1.13.10 4.2.7.2.686 [id number] [facility] 2022-10-05 13:30:00 2022-10-05 13:30:00 Outpatient R MALLORY LAWS [facility] [id number] [facility] 2022-09-11 09:15:00 2022-09-11 09:15:00 Outpatient R CEDRICK CHANCE [facility] [id number] [facility] 2022-09-04 13:30:00 2022-09-04 13:52:24 Outpatient R JUSTIN LAWSSSICA [facility] [id number] [facility] 2022-09-04 13:30:00 2022-09-04 13:52:24 Office Visit Justin Lawsssica [facility] 1..840.114 350.1.13.10 4.2.7.2.686 [id number] [facility] 2022-08-17 00:00:00 2022-08-17 00:00:00 Telephone Batsheva Toledo [facility] 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 [facility] 1..840.114 350.1.13.10 4.2.7.2.686 [id number] [facility] 2022-08-08 09:45:00 2022-08-08 09:45:00 Outpatient R TIKA MOONEY [facility] [id number] [facility] 2022-08-04 11:30:00 2022-08-04 11:48:10 Outpatient R MALLORY LAWS [facility] [id number] [facility] 2022-08-04 11:30:00 2022-08-04 11:48:10 Office Visit Mallory Laws [facility] 1..840.114 350.1.13.10 4.2.7.2.686 [id number] [facility] 2022-08-04 11:20:00 2022-08-04 11:20:00 Outpatient JUANCARLOS NAGY HOWARD [facility] [id number] [facility] 2022-08-04 00:00:00 2022-08-04 00:00:00 Orders Only Doctor Unassigned, [place] [facility] 1.840.114 350.1.13.10 4.2.7.2.686 [id number] [facility] 2022-07-28 08:15:00 2022-07-28 08:15:00 Outpatient R BATSHEVA TOLEDO [facility] [id number] [facility] 2022-07-24 00:00:00 2022-07-24 00:00:00 Refill Doctor Unassigned, [place] [facility] 1..840.114 350.1.13.10 4.2.7.2.686 [id number] [facility] 2022-07-23 00:00:00 2022-07-23 00:00:00 Refill Doctor Unassigned, [place] [facility] 1..840.114 350.1.13.10 4.2.7.2.686 [id number] [facility] 2022-07-21 00:00:00 2022-07-21 00:00:00 Refill Doctor Unassigned, [place] [facility] 1..840.114 350.1.13.10 4.2.7.2.686 [id number] [facility] 2022-07-17 00:00:00 2022-07-17 00:00:00 Telephone Batsheva Toledo [facility] 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 [facility] 1.840.114 350.1.13.10 4.2.7.2.686 [id number] [facility] 2022-07-02 00:00:00 2022-07-02 00:00:00 Patient Secure Msg Doctor Unassigned, [place] [facility] 1.840.114 350.1.13.10 4.2.7.2.686 [id number] [facility] 2022-06-30 14:45:00 2022-06-30 14:45:00 Outpatient JAS [facility] [id number] [facility] 2022-06-18 09:45:00 2022-06-18 09:45:00 Outpatient NAVEEN JAEGER [facility] [id number] [facility] 2022-06-17 18:48:00 2022-06-17 22:15:00 Emergency DAIANA SLOAN [facility] [id number] [facility] 2022-06-17 18:48:00 2022-06-17 22:15:00 emergency [id number] 5eb [id number] 2022-06-16 00:00:00 2022-06-16 00:00:00 Telephone Juancarlos Wakefield [facility] 1..840.114 350.1.13.10 4.2.7.2.686 [id number] [facility] 2022-05-22 00:00:00 2022-05-22 00:00:00 Telephone Juancarlos Wakefield [facility] 1.84.114 350.1.13.10 4.2.7.2.686 [id number] [facility] 2022-05-05 00:00:00 2022-05-05 00:00:00 Patient Secure Msg Doctor Unassigned, [place] [facility] 1..114 350.1.13.10 4.2.7.2.686 [id number] [facility] 2022-03-23 00:00:00 2022-03-23 00:00:00 Patient Secure Msg Juancarlos Wakefield [facility] 1..114 350.1.13.10 4.2.7.2.686 [id number] [facility] 2022-03-19 16:00:00 2022-03-19 16:00:00 Outpatient NAVEEN JAEGER [facility] [id number] [facility] 2022-03-19 16:00:00 2022-03-19 16:00:00 Nurse Visit Visit, Ang-Rmchp Nurse Naveen Hadley [facility] 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 [facility] 1.84.114 350.1.13.10 4.2.7.2.686 [id number] [facility] 2022-03-19 16:00:00 2022-03-19 15:59:27 Outpatient NAVEEN JAEGER [facility] [id number] [facility] 2022-02-23 16:20:00 2022-02-23 16:53:04 Outpatient JUANCARLOS NAGY HOWARD [facility] [id number] [facility] 2022-02-23 16:20:00 2022-02-23 16:53:04 Office Visit Juancarlos Wakefield [facility] 1.2.840.114 350.1.13.10 4.2.7.2.686 [id number] [facility] 2022-02-23 16:20:00 2022-02-23 16:53:04 Outpatient R JUANCARLOS WAKEFIELD HOWARD [facility] [id number] [facility] 2021-12-18 14:30:00 2021-12-18 14:39:12 Outpatient BATSHEVA MOORE [facility] [id number] [facility] 2021-12-18 14:30:00 2021-12-18 14:39:12 Nurse Visit Visit, Ang-Rmchp Nurse Batsheva Toledo [facility] 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 [facility] 1..840.114 350.1.13.10 4.2.7.2.686 [id number] [facility] 2021-12-17 00:00:00 2021-12-17 00:00:00 Telephone Naveen Hadley [facility] 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 [facility] 1..840.114 350.1.13.10 4.2.7.2.686 [id number] [facility] 2021-12-16 09:45:00 2021-12-16 10:31:24 Office Visit Naveen Hadley [facility] 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 [facility] 1.2.840.114 350.1.13.10 4.2.7.2.686 [id number] [facility] 2021-12-16 09:45:00 2021-12-16 10:31:24 Outpatient R NAVEEN HADLEY [facility] [id number] [facility] 2021-12-16 09:45:00 2021-12-16 09:45:00 Outpatient NAVEEN JAEGER [facility] [id number] [facility] 2021-12-11 08:00:00 2021-12-11 08:00:00 Outpatient YASMIN JAEGERDUONGLILLIE [facility] [id number] [facility] 2021-12-11 08:00:00 2021-12-11 08:00:00 [facility] [id number] [facility] 2021-12-08 08:30:00 2021-12-08 08:30:00 Outpatient YASMIN JAEGERGABBYNeli [facility] [id number] [facility] 2021-12-08 08:30:00 2021-12-08 08:30:00 Outpatient YASMIN JAEGERLILLIE [facility] [id number] [facility] 2021-12-02 11:00:00 2021-12-02 12:27:17 Outpatient CRISTOPHER ARECHIGA PATRICK [facility] [id number] [facility] 2021-12-02 11:00:00 2021-12-02 12:27:17 Office Visit Cristopher Olivares [facility] 1..840.114 350.1.13.10 4.2.7.2.686 [id number] [facility] 2021-12-02 11:00:00 2021-12-02 12:27:17 Outpatient R CRISTOPHER OLIVARES PATRICK [facility] [id number] [facility] 2021-12-02 00:00:00 2021-12-02 00:00:00 Orders Only Doctor Unassigned, [place] [facility] 1..840.114 350.1.13.10 4.2.7.2.686 [id number] [facility] 2021-11-06 09:30:00 2021-11-06 09:30:00 Outpatient Vicki IVY TOLEDOOLA [facility] [id number] [facility] 2021-11-05 00:00:00 2021-11-05 00:00:00 Telephone Louis Hadleylillie [facility] 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 [facility] 1..840.114 350.1.13.10 4.2.7.2.686 [id number] [facility] 2021-11-05 00:00:00 2021-11-05 00:00:00 Refill Louis Hadleygabbyneli [facility] 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 [facility] 1..840.114 350.1.13.10 4.2.7.2.686 [id number] [facility] 2021-10-31 14:20:00 2021-10-31 16:01:15 Outpatient JUANCARLOS NAGY HOWARD [facility] [id number] [facility] 2021-10-28 16:20:00 2021-10-28 16:20:00 Outpatient JUANCARLOS NAGY HOWARD [facility] [id number] [facility] 2021-10-14 00:00:00 2021-10-14 00:00:[address] 1.2.840.114 350.1.13.10 4.2.7.2.686 [id number] [facility] 2021-06-06 11:00:00 2021-06-06 11:00:00 Outpatient JUANCARLOS NAGY HOWARD [facility] [id number] [facility] 2021-06-06 08:30:10 2021-06-06 09:47:27 [facility] 1.2.840.114 350.1.13.10 4.2.7.2.686 [id number] [facility] 2021-04-29 20:56:00 2021-04-30 01:33:00 Emergency Ugo [place] [facility] 1.2.840.114 350.1.13.10 4.2.7.2.686 [id number] [facility] 2021-04-29 16:13:21 2021-04-29 16:55:04 Urgent Care Hannah, Aman Lopez, Tawanna [facility]ending [facility] to [facility] 1.2.840.114 350.1.13.10 4.2.7.2.686 [id number] [facility] 2021-04-29 16:00:00 2021-04-29 16:00:00 Outpatient TAWANNA ARNDT [facility] [id number] [facility] 2021-02-21 13:15:00 2021-02-21 13:15:00 Outpatient BATSHEVA MOORE [facility] [id number] [facility] 2021-01-14 00:00:00 2021-01-14 00:00:00 Outpatient JUANCARLOS NAGY HOWARD [facility] [id number] [facility] 2021-01-07 16:00:00 2021-01-07 16:00:00 Outpatient JUANCARLOS NAGY HOWARD [facility] [id number] [facility] 2020-12-28 09:00:00 2020-12-28 09:00:00 Outpatient MAC TIMMONS [facility] [id number] [facility] 2020-12-27 11:40:00 2020-12-27 11:40:00 Outpatient MAC TIMMONS [facility] [id number] [facility] 2020-11-11 15:35:30 2020-11-11 16:14:21 Office Visit Naveen Hadley [facility] 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 [facility] 1.2.840.114 350.1.13.10 4.2.7.2.686 [id number] 2020-11-11 15:15:00 2020-11-11 15:15:00 Outpatient NAVEEN JAEGER [facility] [id number] [facility] 2020-11-07 00:00:00 2020-11-07 00:00:00 Outpatient JUANCARLOS NAGY HOWARD [facility] [id number] [facility] 2020-10-22 00:00:00 2020-10-22 00:00:00 Outpatient JUANCARLOS NAGY HOWARD [facility] [id number] [facility] 2020-10-15 13:00:00 2020-10-15 13:00:00 Outpatient NAVEEN JAEGER [facility] [id number] [facility] 2020-10-10 08:00:00 2020-10-10 08:00:00 Outpatient JUANCARLOS NAGY HOWARD [facility] [id number] [facility] 2020-09-30 16:20:00 2020-09-30 16:20:00 Outpatient JUANCARLOS NAGY HOWARD [facility] [id number] [facility] 2020-06-28 08:40:00 2020-06-28 08:40:00 Outpatient JUANCARLOS NAGY HOWARD [facility] [id number] [facility] 2020-04-23 09:14:00 2020-05-22 23:59:00 Outpatient JR DUMONT [facility] [id number] [facility] 2019-12-21 14:20:00 2019-12-21 14:20:00 Outpatient MAC TIMMONS [facility] [id number] [facility] 2019-06-08 08:53:00 2019-06-08 08:53:00 Outpatient [facility] [id number] [facility] 2019-05-29 05:35:00 2019-05-29 05:35:00 Inpatient U [facility] [address] [facility] Results Test Description Test Time Test Comments Results Result Co mments Source [id number] 21:06:00* Test Item Value Reference Range Interpretation Comme nts POCT PREG (test code = 1605) Negative On board controls acceptable with C Line (test code = 3574) Yes POCT PREG LOT # (test code = 3575) POCT PREG TEST DATE ( test code = 3576) [facility] Notes Date/Time Note Provider Source 2023-05-24 10:43:16 5344-48-70K82:43:16F ormatting of this note might be different from the original.Done. 80672-3Mijswaotc encounter PhwsOE8610-85-58L77:43:24Telep andi encounter NoteTXT1.2.840.511776.1.13.104 .2.7.2.290767|[id number] [facility] for patient assz14932-1ToxcJNXDHWWQQZ[address]onTXTX[address] 406660VGMUWIBJQKIERCKZHVRLKK86 29-05-18T10:43:241.2.840.96716 0.1.72.3.15|1.2.840.805225.1.1 3.104.2.7.2.727879_[id number] [facility] 2023-05-22 09:05:57 6848-93-82C90:05:57F ormatting of this note might be different from the original.Aman Agustin is a 38 year old female Pt called requesting status on medication regarding LUIS DANIEL having been . Please advise. 64389-5Opngtdflu encounter QetqDF0388-89-47U12:08:43Telep andi encounter NoteTXT1.2.840.641426.1.13.104 .2.7.2.879501|[id number] lable for patient sdwc85810-4DbnvNS25455638Olctl han I GomezU[address]TX[address] 378510ABTNTYIXPBBVKKBHEWJVYS25 29-05-16T09:08:431.2.840.47999 0.1.72.3.15|1.2.840.296504.1.1 3.104.2.7.2.727879_[id number] Larry Goodrich [facility] 2023-05-20 14:09:28 1148-46-24C42:09:28F ormatting of this note might be different from the original.Routing to Pat Laws/Dr. Wakefield for refill. Sent pt VivoText message updating her that I was also sending it to Dr. Wakefield to fill. 49762-8Xsmyhofyv encounter XisrTB8995-86-81K97:27:56Telep andi encounter NoteTXT1.2.840.943148.1.13.104 .2.7.2.941798|[id number] lable for patient xqdj36785-2KcgrWRDIVIOIKO[address]TXTX[address] 557218MPLANRVQQIBNBJSWDLOACZ76 29-05-14T14:27:561.2.840.84241 0.1.72.3.15|1.2.840.964877.1.1 3.104.2.7.2.727879_[id number] [facility] 2023-05-19 13:49:49 3654-65-03T99:49:49F ormatting of this note might be different from the original.Pt following up on encounter. 50827-0Ebxhanxjn encounter XekgMR9379-92-47B10:50:45Telep andi encounter NoteTXT1.2.840.430790.1.13.104 .2.7.2.718563|[id number] lable for patient dwkg61329-5QirtHP47239090Ddsov sa Vicki [address] 402887JXXSAONZHVACFAILEPCVTT40 29-05-133:50:451.2.840.98739 0.1.72.3.15|1.2.840.162249.1.1 3.104.2.7.2.727879_[id number] [facility] 2023-05-17 14:31:18 4601-24-84W83:31:18F ormatting of this note might be different from the original.Aman Agustin is a 38 year old femaleLydia with [facility] calling stating they received the prescription for patient's Lyrica however they are unable to process it as PATRICIO Laws' LUIS DANIEL has as of 05/06/23. Please advise. [facility] Pharmacyt: [phone] signed by Mallory Hunter at 05/17/2023 2:32 PM KDE03881-2Uicagojpt encounter SzalGT0725-49-25G69:32:56Telep andi encounter NoteTXT1.2.840.918626.1.13.104 .2.7.2.933565|[id number] lable for patient bzfb29451-5FhhoAP933512305Dprc ica S Rodriguez[address]TXTX[address] 947417SYLZAYHLWJSCFLJWGLHSJP20 29-05-11T14:32:561.2.840.79804 0.1.72.3.15|1.2.840.652430.1.1 3.104.2.7.2.727879_[id number] Mallory Colmenares Dale [facility] 2023-04-16 17:24:52 4938-85-37E34:24:52F ormatting of this note might be different from the original.Called pt and left VM to let her know that Rx had been called into [facility] like her other prescriptions had been. 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 09662-0Mxjnzkxan encounter KsotMV5429-85-02A70:28:10Telep andi encounter NoteTXT1.2.840.803247.1.13.104 .2.7.2.547292|[id number] lable for patient winb30750-0GbidQDIKRZOZNS[address]vdGalvestonGalvestonTXTX[address] 090281KVNYZXAQALZFZYMMKXJOXN29 28-04-11T17:28:101.2.840.99261 0.1.72.3.15|1.2.840.793922.1.1 3.104.2.7.2.727879_[id number] [facility] 2023-04-16 14:32:22 7678-34-95K43:32:22F ormatting of this note might be different from the original.Aman Agustin is a 37 year old female.[employer] calling stating that they still have not received the PREGABALIN 150MG and need the refill please advise thank you. 89464-6Npgznczvr encounter CmzmOI9337-59-07E53:41:13Telep andi encounter NoteTXT1.2.840.575139.1.13.104 .2.7.2.453084|[id number] lable for patient qrdn71095-2HcglXR524251816Fnxr brittany Cantrell [address] 279066ISBVFXKFMQMAWJCSUTRCEZ86 28-04-11T14:41:131.2.840.08601 0.1.72.3.15|1.2.840.152798.1.1 3.104.2.7.2.727879_[id number] Juana Cantrell [facility] 2023-04-14 16:53:10 3422-05-01H39:53:10F ormatting of this note is different from the original.Requested Prescriptions Refused Prescriptions Disp Refills PREGABALIN 150 mg capsule [Pharmacy Med Name: PREGABALIN 150MG] 90 capsule 0 Sig: TAKE 1 CAPSULE BY MOUTH 3 TIMES DAILY IN THE MORNING AT NOON AND IN THE EVENING *MAY IMPAIR ALERTNESS Refused By: MARCE WEEKS Reason for Refusal: Request already responded to by other means (e.g. phone or fax) Refilled on 04/05/23 for qty 90 with 3 refills. 00624-9Afumubtmd encounter MzuaUF1788-31-19I95:54:29Telep andi encounter NoteTXT1.2.840.592313.1.13.104 .2.7.2.622092|[id number] [facility] tnls94257-3BnmyUVOOYZJMMW[address]TXTX[address] 682952KDLJRCTPPATNBMLRIDRXSK49 28-04-09T16:54:291.2.840.24965 0.1.72.3.15|1.2.840.278372.1.1 3.104.2.7.2.727879_[id number] [facility] 2023-04-05 08:47:26 6076-45-51C34:47:26F ormatting of this note might be different from the original.Refills sent. I hope you can get that all handled! 28596-1Ruiqmfwcf encounter BxxbEB0704-72-67O30:49:42Telep andi encounter NoteTXT1.2.840.737773.1.13.104 .2.7.2.934285|[id number] lable for patient ehwe52799-4AtetEFPWNRYEMH[address]TXTX[address] 481671OUYXXZEINBAQORGDBRUVBJ57 28-03-31T08:49:421.2.840.84006 0.1.72.3.15|1.2.840.456639.1.1 3.104.2.7.2.727879_[id number] [facility] 2022-07-24 15:37:57 7159-57-87Z25:37:57F ormatting of this note might be different from the original.SOPHY: 02/23/2022NOV: 08/04/2022 42259-4Ywmheoccq encounter UkpbCD4503-22-92Y65:39:00Telep andi encounter NoteTXT1.2.840.846161.1.13.104 .2.7.2.078090|[id number] lable for patient avor39727-8AxkcXTHOMRNUEAWUavm atted C-CDA narrative [address] 770061STLYRWIOACEGOSSJOPDJTD14 28-07-18T15:39:001.2.840.15570 0.1.72.3.15|1.2.840.110200.1.1 3.104.2.7.2.727879_[id number] [facility]"
[2024-02-23] MEDS ORDERED: ONDANSETRON 4 MG/2 ML VIAL ONE (22:43)
[2024-02-23] MEDS ORDERED: MECLIZINE HCL 12.5 MG TAB ONE (22:43)
[2024-02-23] MEDS ORDERED: NA CHLORIDE 0.9% 1,000 ML ONE (22:44)
[2024-02-23 23:46] LABS: Absolute Eosinophils 0.2 K/uL (0-0.5); Absolute Monocytes 0.6 K/uL (0.1-1.3); Absolute Neutrophil 4.8 K/uL (1.8-8.0); Basophils % 0.5 % (0-1.3); Eosinophils % 2.5 % (0-4.4); Hematocrit 39.6 % (36.0-45.0); Hemoglobin 13.5 g/dL (12.0-15.0); Lymphocytes % 26.4 % (15.3-44.8); MCH 32.6 pg (27.0-35.0); MPV 8.1 fL (7.6-11.3); Monocytes % 8.5 % (3.3-12.3); Neutrophils % 62.1 % (41.7-73.7); Nucleated Red Blood Cells % 0.1 % (0-0); Platelets 279 thou/uL (152-406); RBC Red Blood Cell Count 4.13 M/uL (3.86-4.86); Red Cell Distribution Width 13.9 % (12.1-15.2)
[2024-02-23 23:53] LABS: Anion Gap 7.7 mEq/L (5.0-15.0); Potassium 3.7 mEq/L (3.5-5.1)
--- NOTE | 2024-02-24 00:25 | EDPHYS ---
Physician Documentation [facility] Name: Faviola Agustin Age: 38 yrs Sex: Female : 1985 Arrival Date: 02/23/2024 Time: 21:52 Bed 15 Private MD: ED Physician Abilio Pascal HPI: 02/22 23:51 This 38 yrs old Female presents to ER via Wheelchair with complaints of Vomiting, kb Dizziness. 23:51 Pt is a 38 year old female who presents for dizziness that started at 1130 today kb followed by headache, nausea and vomiting. STates dizziness is worse with movement of head, changing positions. denies fever, cough, congestion, neck pain. . 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 - Infectious Disease History:: Denies. - Social history:: Smoking status: Patient denies any tobacco usage or history of. ROS: 23:51 Constitutional: As per HPI kb Exam: 23:51 Constitutional: This is a well developed, well nourished patient who is awake, alert, kb and in no acute distress. Head/Face: Normocephalic, atraumatic. ENT: Moist Mucous membranes Cardiovascular: Regular rate Respiratory: Respirations even and unlabored. No increased work of breathing. Talking in full sentences Abdomen/GI: Soft, non-tender. No distention Skin: Warm, dry with normal turgor. Normal color. MS/ Extremity: Pulses equal, no cyanosis. Neurovascular intact. Full, normal range of motion. Neuro: Awake and alert, GCS 15, oriented to person, place, time, and situation. Moves all extremities. Normal gait. 23:51 ENT: External ear(s): are unremarkable, Ear canal(s): are normal, TM's: are normal, Vital Signs: 22:07 BP 156 / 90; Pulse 80; Resp 17 S; Temp 97.9; Pulse Ox 100% on R/A; Weight 49.9 kg; ha1 Height 5 ft. 6 in. ; 22:15 BP 155 / 81; Pulse 74; Resp 15; Pulse Ox 100% ; me1 23:00 BP 152 / 80; Pulse 70; Resp 16; Pulse Ox 100% on R/A; me1 23:45 BP 128 / 100; Pulse 92; Resp 14; Pulse Ox 100% on R/A; me1 22:07 Body Mass Index 17.75 (49.90 kg, 167.64 cm) ha1 MDM: 21:57 Patient medically screened. 23:53 Data reviewed: vital signs, nurses notes. Historians other than the Patient: roger Spouse/Significant Other: . 02/23 00:17 Differential diagnosis: generalized weakness, hypovolemia, idiopathic dizziness, kb vertigo. Counseling: I had a detailed discussion with the patient and/or guardian regarding the historical points, exam findings, and any diagnostic results supporting the discharge/admit diagnosis, lab results, radiology results, the need for outpatient follow up, a neurologist, to return to the emergency department if symptoms worsen or persist or if there are any questions or concerns that arise at home. 02/22 22:05 Order name: CBC with Diff 02/22 22:05 Order name: Basic Metabolic Panel 02/22 22:05 Order name: CT Head Brain wo Cont 02/22 22:05 Order name: IV Start; Complete Time: 22:41 kb Administered Medications: 02/22 22:49 Drug: NS 0.9% IV 1000 ml IV at 1000 ml once Route: IV; Rate: 1000 ml; Site: right me1 antecubital; 02/23 00:00 Follow up: Response: No adverse reaction; IV Status: Completed infusion; IV Intake: ha1 1000ml 02/22 22:49 Drug: Ondansetron IVP 4 mg IVP once; over 2 minutes Route: IVP; Site: right antecubital;fl1 22:59 Follow up: Response: No adverse reaction; Nausea is decreased me1 22:49 Drug: Meclizine PO 25 mg PO once Route: PO; fl1 02/23 00:44 Follow up: Response: No adverse reaction ha1 00:33 Drug: Diazepam PO 5 mg PO once Route: PO; ha1 00:44 Follow up: Response: No adverse reaction ha1 Disposition: 04:17 Co-signature as Attending Physician, Abilio Pascal MD I agree with the assessment sp4 and plan of care. I reviewed the patient's care provided by the Advanced Practice Provider and agree with the diagnosis and treatment plan. Disposition Summary: 02/24/24 00:17 Discharge Ordered Notes: Location: Home kb Condition: Stable kb Diagnosis - Dizziness and giddiness kb Followup: kb - With: Emergency Department - When: As needed - Reason: Worsening of condition Followup: kb - With: Private Physician - When: 2 - 3 days - Reason: Recheck today's complaints, Continuance of care, Re-evaluation by your physician Discharge Instructions: - Discharge Summary Sheet kb - Vertigo, [id number] kb - Dizziness, [id number]-pc-[id number] kb Forms: - Medication Reconciliation Form kb - Antibiotic Education kb - Prescription Opioid Use kb - Patient Portal Instructions kb - Leadership Thank You Letter kb Prescriptions: - Meclizine 25 mg Oral Tablet - take 1 tablet ORAL route every 8 hours As needed; 30 tablet; Refills: 0, kb Product Selection Permitted - Zofran 4 mg Oral tablet - take 1 tablet ORAL route every 6 hours As needed; 12 tablet; Refills: 0, kb Product Selection Permitted Signatures: Dispatcher [employer] EDMS Barbara Granados, CLIENT SERVICE MANAGER-C CLIENT SERVICE MANAGER-Verena Martinez, RN RN ha1 Abilio Pascal MD MD sp4 Yoselin Wynn, ADRIEN RN me1 Corrections: (The following items were deleted from the chart) 02/22 22:05 22:05 Head Brain Wo Cont+CT.RAD.BRZ ordered. EDMS EDMS 22:05 22:05 CBC+H.LAB.BRZ ordered. EDMS EDMS 22:05 22:05 BASIC METABOLIC PANEL+C.LAB.BRZ ordered. EDMS EDMS
--- NOTE | 2024-02-24 00:25 | ER ---
Nurse's Notes [facility] Name: Faviola Agustin Age: 38 yrs Sex: Female : 1985 Arrival Date: 02/23/2024 Time: 21:52 Bed 15 Private MD: Diagnosis: Dizziness and giddiness Presentation: 02/22 22:07 Chief complaint: Patient states: Nausea, vomiting, and dizziness. I had my face rebuild ha1 three years ago and I have had similar symptoms after the surgery before but not so sever as today. Coronavirus screen: Vaccine status: Patient reports being unvaccinated. Ebola Screen: No symptoms or risks identified at this time. Initial Sepsis Screen: Does the patient meet any 2 criteria? No. Patient's initial sepsis screen is negative. Does the patient have a suspected source of infection? No. Patient's initial sepsis screen is negative. Risk Assessment: Do you want to hurt yourself or someone else? Patient reports no desire to harm self or others. Onset of symptoms was February 23, 2024. 22:07 Method Of Arrival: Wheelchair ha1 22:07 Acuity: YOBANI 3 ha1 Triage Assessment: 21:59 General: Appears uncomfortable, Behavior is cooperative, crying. Pain: Complains of ha1 pain in head Pain does not radiate. Pain currently is 8 out of 10 on a pain scale. Quality of pain is described as pressure. Neuro: Level of Consciousness is awake, alert, obeys commands. Neuro: Reports dizziness. Cardiovascular: Patient's skin is warm and dry. Respiratory: Airway is patent Respiratory effort is even, unlabored, Respiratory pattern is regular, symmetrical. GI: Reports nausea, vomiting. 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 - Infectious Disease History:: Denies. - Social history:: Smoking status: Patient denies any tobacco usage or history of. Screenin:05 [facility] ED Fall Risk Assessment (Adult) History of falling in the last 3 months, me1 including since admission No falls in past 3 months (0 pts) Confusion or Disorientation No (0 pts) Intoxicated or Sedated No (0 pts) Impaired Gait Yes (1 pt) Mobility Assist Device Used No (0 pt) Altered Elimination No (0 pt) Score/Fall Risk Level 0 - 2 = Low Risk Maintained a safe environment, Provided non-skid footwear, Hourly rounding (assess needs \T\ fall precautionary measures) done. 22:14 Abuse screen: Denies threats or abuse. Denies injuries from another. Nutritional ha1 screening: No deficits noted. Tuberculosis screening: No symptoms or risk factors identified. Assessment: 22:05 General: Appears ill, well groomed, well developed, well nourished, Behavior is calm, me1 cooperative, appropriate for age, Reports Nausea, vomiting, and dizziness. I had my face rebuild three years ago and I have had similar symptoms after the surgery before but not so severe as today. Pain: Denies pain. Neuro: Level of Consciousness is awake, alert, obeys commands, Oriented to person, place, time, situation, Appropriate for age Reports dizziness, since this morning. Cardiovascular: Patient's skin is warm and dry. Respiratory: Airway is patent Respiratory effort is even, unlabored, Respiratory pattern is regular, symmetrical. GI: Reports nausea, vomiting, since this morning. GI: Abdomen is flat. : No signs and/or symptoms were reported regarding the genitourinary system. EENT: No signs and/or symptoms were reported regarding the EENT system. Derm: Skin is intact, is healthy with good turgor, Skin is pink, warm \T\ dry. Musculoskeletal: No signs and/or symptoms reported regarding the musculoskeletal system. 02/23 00:04 Reassessment: Patient and/or family updated on plan of care and expected duration. Pain ha1 level reassessed. Patient is alert, oriented x 3, equal unlabored respirations, skin warm/dry/pink. see triage assessment Patient states feeling better. Patient states symptoms have improved. Vital Signs: 02/22 22:07 BP 156 / 90; Pulse 80; Resp 17 S; Temp 97.9; Pulse Ox 100% on R/A; Weight 49.9 kg; ha1 Height 5 ft. 6 in. ; 22:15 BP 155 / 81; Pulse 74; Resp 15; Pulse Ox 100% ; me1 23:00 BP 152 / 80; Pulse 70; Resp 16; Pulse Ox 100% on R/A; me1 23:45 BP 128 / 100; Pulse 92; Resp 14; Pulse Ox 100% on R/A; me1 22:07 Body Mass Index 17.75 (49.90 kg, 167.64 cm) ha1 ED Course: 21:55 Patient arrived in ED. ra3 21:57 Barbara Granados FNP-C [facility]. kb 21:57 Abilio Pascal MD is Attending Physician. kb 22:00 Arm band placed on right wrist. ha1 22:05 No provider procedures requiring assistance completed. me1 22:05 Patient has correct armband on for positive identification. Bed in low position. Call me1 light in reach. Side rails up X2. Provided Education on: POC. Verbalized understanding. . Client placed on continuous cardiac and pulse oximetry monitoring. NIBP monitoring applied. Pulse ox on. NIBP on. 22:12 Triage completed. ha1 22:33 Yoselin Wynn, ADRIEN is Primary Nurse. me1 22:41 CBC with Diff Sent. me1 22:42 Initial lab(s) drawn, by me, sent to lab. Inserted saline lock: 22 gauge in right me1 antecubital area, using aseptic technique. 23:22 IV discontinued, intact, bleeding controlled, No redness/swelling at site. Pressure me1 dressing applied. 23:22 Lab(s) recollected, by me, sent to lab. Inserted saline lock: 22 gauge in left me1 antecubital area, using aseptic technique. 02/23 00:24 CT Head Brain wo Cont In Process Unspecified. EDMS 00:43 No provider procedures requiring assistance completed. ha1 00:44 IV discontinued, intact, bleeding controlled, No redness/swelling at site. Pressure ha1 dressing applied. Administered Medications: 02/22 22:49 Drug: NS 0.9% IV 1000 ml IV at 1000 ml once Route: IV; Rate: 1000 ml; Site: right me1 antecubital; 02/23 00:00 Follow up: Response: No adverse reaction; IV Status: Completed infusion; IV Intake: ha1 1000ml 02/22 22:49 Drug: Ondansetron IVP 4 mg IVP once; over 2 minutes Route: IVP; Site: right antecubital;pr1 22:59 Follow up: Response: No adverse reaction; Nausea is decreased me1 22:49 Drug: Meclizine PO 25 mg PO once Route: PO; me1 02/23 00:44 Follow up: Response: No adverse reaction ha1 00:33 Drug: Diazepam PO 5 mg PO once Route: PO; ha1 00:44 Follow up: Response: No adverse reaction ha1 Medication: 02/22 22:05 VIS not applicable for this client. me1 Intake: 02/23 00:00 IV: 1000ml; Total: 1000ml. ha1 Outcome: 00:17 Discharge ordered by . kb 00:43 Discharged to home via wheelchair, with family, ha1 00:43 Condition: stable 00:43 Discharge instructions given to patient, family, Instructed on discharge instructions, follow up and referral plans. medication usage, Demonstrated understanding of instructions, follow-up care, medications, Prescriptions given X 2, 00:45 Patient left the ED. 1 Signatures: Dispatcher [employer] EDMS Barbara Granados, Verena Bojorquez RN RN [facility] Yoselin Wynn RN [place] [facility] [place] Klarissa Huffman ra3 Corrections: (The following items were deleted from the chart) 02/22 23:03 22:07 Chief complaint: Patient states: Nausea, vomiting, and dizziness. I had my face pr1 rebuild three years ago and I have had similar symptoms after the surgery before but not so sever as today 1 02/23 00:04 00:04 Reassessment: Patient and/or family updated on plan of care and expected ha1 duration. Pain level reassessed. Patient is alert, oriented x 3, equal unlabored respirations, skin warm/dry/pink. ha1 00:05 00:04 Reassessment: Patient and/or family updated on plan of care and expected ha1 duration. Pain level reassessed. Patient is alert, oriented x 3, equal unlabored respirations, skin warm/dry/pink. see triage assessment ha1
[2024-02-24] MEDS ORDERED: DIAZEPAM 5 MG TABLET ONE (00:30)
[2024-02-24 01:35] VITALS: BP 128/100; TEMP 97.9; O2SAT 100
--- NOTE | 2024-02-24 14:18 | RAD REPORT ---
EXAM DESCRIPTION: CT - Head Brain Wo Cont - 02/24/2024 6:57 am CLINICAL HISTORY: Dizziness, Headache COMPARISON: None TECHNIQUE: Head/brain axial images acquired without contrast. Coronal and sagittal reformats created . Exam performed according to departmental dose-optimization program which includes automated exposur e control, adjustment of mA and/or kV according to patient size, and/or use of iterative reconstructi on technique. FINDINGS: No midline shift, mass effect, intracranial hemorrhage, or hydrocephalus. Brain parenchyma unremarkable. Paranasal sinuses clear. Mastoid air cells clear. No skull fracture or significant skull lesion. Right orbital inferior and lateral rim postsurgical changes consisting of plate and attached bone scr ews. IMPRESSION: 1. Normal CT brain appearance. 2. Right orbital postsurgical changes. Electronically signed by: Herb Fonseca MD 02/23/2024 11:27 PM CDT RP Due to temporary technical issues with the PACS/Fluency reporting system, reports are being signed by the in house radiologist without review as a courtesy to ensure prompt reporting. The interpreting r adiologist is fully responsible for the content of the report.
== END 2024-02-24 00:45 | disposition home or self-care (01) ==
LOC: ER 21:52
DX: R42 Dizziness and giddiness (principal); R11.10 Vomiting, unspecified
CPT/HCPCS: 96361; 85025; 80048; 36415; 70450; 96374; 99284; J8597; J2405; J7030